=== PATIENT | female | born 2000 | race Two or more races ===

== ENCOUNTER 2024-09-11 09:41 | Emergency (ER) | payer MEDICAID, SELFPAY ==
[2024-09-11 09:42] VITALS: BMI 30.2
[2024-09-11 10:21] VITALS: BP 122/81; PULSE 100; RESP 18; TEMP 37.1; O2SAT 100
--- NOTE | 2024-09-11 10:30 | PD.EDRME ---
Rapid Medical Screening Exam RME Arrival date/time: 09/11/24 09:41 23-year-old female presents emergency department complaining of diffuse abdominal pain with vomiting that started yesterday. Chief Complaint: Abdominal Pain Time Seen by Provider: 09/11/24 10:23 Vital signs: Vital Signs Temperature 98.7 F 09/11/24 10:21 Pulse Rate 100 09/11/24 10:21 Respiratory Rate 18 09/11/24 10:21 Blood Pressure 122/81 09/11/24 10:21 Pulse Oximetry (%) 100 09/11/24 10:21 Oxygen Delivery Method Room Air 09/11/24 10:21 Vital signs reviewed by provider: Yes
[2024-09-11 11:16] LABS: Basophils % (Auto) 1 % (0-2.5); Eosinophils # (Auto) 0.1 Thou/mm3 (0.0-0.5); Eosinophils % (Auto) 2 % (0-10); Hemoglobin 13.6 g/dL (12.0-16.0); Immature Granulocytes % (Auto) 0 % (0-0); Immature Granulocytes Auto 0.01 Thou/mm3 (0.00-0.00); Lymphocytes # (Auto) 1.8 Thou/mm3 (1.0-4.8); Lymphocytes % (Auto) 33 % (10-50); Mean Corpuscular HGB Conc 33.2 g/dl (31.0-37.0); Mean Corpuscular Volume 81 fL (80-100); Monocytes # (Auto) 0.4 Thou/mm3 (0.0-0.8); Monocytes % (Auto) 8 % (0-12); Neutrophils % (Auto) 56 % (37-80); Nucleated Red Blood Cell % 0 /100 WBC (0); Platelet Count 271 Thou/mm3 (140-440); RDW Standard Deviation 38.8 fL (36.4-46.3); Red Blood Count 5.04 Miln/mm3 (4.00-5.20); White Blood Count 5.4 Thou/mm3 (3.6-11.0)
[2024-09-11 11:19] LABS: Collection Type, Urine Clean Catch; RBC,Urine 0 /hpf (0-3)
[2024-09-11] MEDS: ONDANSETRON ODT 4 MG TABRAP PO (11:19)
[2024-09-11 11:25] LABS: HCG,Qualitative Serum Negative
[2024-09-11 11:31] LABS: Amphetamine/Methamp Scrn,U Negative (Negative); Barbiturate Screen,Urine Negative (Negative); Benzodiazepines Screen,Urine Negative (Negative); Benzoylecgonine Screen, Ur Negative (Negative); Fentanyl Screen,Urine Negative (Negative); Opiate Screen,Urine Negative (Negative); THC Screen,Urine Negative (Negative)
[2024-09-11 11:38] LABS: Bacteria,Urine 3+; Bilirubin,Urine Negative (Negative); Blood,Urine Negative (Negative); Clarity,Urine Turbid (Clear/Hazy); Color,Urine Yellow (Lt Yel-Yel); Culture Indicated,Urine Contaminated; Glucose, Urine Negative (Negative); Ketones,Urine Negative (Negative); Leukocyte Esterase,Urine Positive (Negative); Nitrite,Urine Negative (Negative); Protein,Urine 1+ (Neg - Trace); Specific Gravity,Urine 1.034 (1.001-1.035); Squamous Epithelial Cell,Urine 88 /hpf (0-5); Urobilinogen,Urine Negative mg/dL (0.0-1.0); WBC,Urine 17 /hpf (0-5)
[2024-09-11 11:42] LABS: Alanine Aminotransferase 9 U/L (10-49); Albumin, Serum 4.8 gm/dL (3.5-5.0); Anion Gap 7 (7-16); Aspartate Amino Transferase 12 U/L (0-34); BUN/Creatinine Ratio 13 Ratio (12-20); Bilirubin,Total 0.5 mg/dL (0.3-1.2); Blood Urea Nitrogen 9 mg/dL (9-23); Calcium 9.1 mg/dL (8.3-10.6); Carbon Dioxide 24.7 mMol/L (20.0-31.0); Chloride 107 mMol/L (98-107); Creatinine (Component) 0.7 mg/dL (0.6-1.3); Estimated Creatinine Clearance 127.8 mL/min (>60); Glucose 97 mg/dL (74-106); Osmolality,Calculated 276 (275-295); Potassium 4.2 mMol/L (3.4-5.1); Sodium 139 mMol/L (136-145); Total Protein 7.6 gm/dL (5.7-8.2); eGFR > 60 See Note
[2024-09-11 11:43] LABS: Albumin/Globulin Ratio 1.7 (1.2-2.2); Alkaline Phosphatase 68 U/L (46-116); Calcium (Corrected) 9.1 mg/dL (8.5-10.1); Globulin 2.8 gm/dL (2.3-3.5); Lipase 48 U/L (12-53)
--- NOTE | 2024-09-11 11:47 | EDNOTE_ITS ---
ED Abdominal Pain RME/HPI General Chief Complaint: Abdominal Pain Stated complaint: LEFT ABD PAIN WITH VOMITING SINCE YESTERDAY Time seen by provider: 09/11/24 10:23 Arrival date/time: 09/11/24 09:41 23-year-old female presents emergency department complaining of diffuse abdominal pain with vomiting that started yesterday. Source: patient Mode of arrival: ambulatory Limitations: no limitations RME / HPI RME / HPI narrative: 09/11/24 09:41 23-year-old female presents emergency department complaining of diffuse abdominal pain with vomiting that started yesterday. Related Data Home Medications ?Medication ?Instructions ?Recorded ?Confirmed vit no.95-ferrous 1 tab PO QDAY 06/11/23 06/11/23 fumarate 28 mg-folic acid 800 mcg tablet () Previous Rx's ?Medication ?Instructions ?Recorded acetaminophen 300 mg-codeine 15 mg 1 tab PO Q12H PRN pain #14 tabs 06/25/23 tablet ibuprofen 800 mg tablet 800 mg PO Q8H PRN pain #30 tabs 06/25/23 ondansetron 4 mg disintegrating 4 mg PO Q8H PRN nausea and 09/11/24 tablet vomiting #10 tabs Allergies Allergy/AdvReac Type Severity Reaction Status Date / Time No Known Allergies Allergy Verified 09/11/24 09:43 Review of Systems Review of Systems Systems Reviewed: All systems reviewed, normal except as documented Constitutional Constitutional: Reports system reviewed and no additional complaints, except as documented, Denies body ache(s), Denies chills and Denies fever(s) Eyes Eyes: Reports system reviewed and no additional complaints, except as documented and Denies change in vision ENT Ears, Nose, Mouth, and Throat: Reports system reviewed and no additional complaints, except as documented, Denies disequilibrium, Denies dizziness, Denies sore throat and Denies vertigo Cardiovascular Cardiovascular: Reports system reviewed and no additional complaints, except as documented, Denies chest pain and Denies dyspnea Respiratory Respiratory: Reports system reviewed and no additional complaints, except as documented, Denies chest congestion, Denies cough and Denies dyspnea Gastrointestinal Gastrointestinal: Reports system reviewed and no additional complaints, except as documented, Reports abdominal pain, Reports nausea and Reports vomiting Musculoskeletal Musculoskeletal: Reports system reviewed and no additional complaints, except as documented, Denies abnormal gait and Denies arthralgias Integumentary/Breasts Skin/Breast: Reports system reviewed and no additional complaints, except as documented, Denies erythema, Denies rash and Denies wounds Neurologic Neurologic: Reports system reviewed and no additional complaints, except as documented, Denies abnormal gait, Denies disequilibrium, Denies dizziness and Denies vertigo Past Medical History Past Medical History NEUROLOGIC: Negative Neurological Disorders or Seizures CARDIAC: Negative Cardiac Disorders or Congestive Heart Failure RESPIRATORY: Negative Chronic Obstructive Pulmonary Disease (COPD) or Asthma GASTROINTESTINAL: Negative Gastrointestinal Disorders GENITOURINARY: Negative Genitourinary Disorders or Renal Disease REPRODUCTIVE: Negative Gonorrhea, Previous Pregnancies or Syphilis MUSCULOSKELETAL: Negative Musculoskeletal Disorders ENDOCRINE: Negative Endocrine Disorders, Diabetes Mellitus Type 1 or Diabetes Mellitus Type 2 HEMATOLOGIC: Negative Blood Disorders or Anemia PSYCHO/SOCIAL: Positive Recreational Drug Use (THC 09/2022); Negative Depression or Anxiety OTHER HISTORY: Negative Hospitalization, Autoimmune Disease, Down Syndrome, Developmental Delay, Shingles, Falls, Blood Transfusions, Blood Transfusion Reaction or Anesthesia Reactions Family History FAMILY HISTORY: Negative Family Psychiatric Problems, Family Respiratory Disorders, Family Cardiac Disorders, Family Gastrointestinal Problems, Family Cancer, Family Surgery or Family Anesthesia Reaction Social History SMOKING STATUS: Never smoker ED Exam General Limitations: Present no limitations Course Quality Measures none Orders Category Date Time Status CBC Stat Lab 09/11/24 10:44 Completed CMP [Comprehensive Metabolic Panel] Stat Lab 09/11/24 10:44 Completed Drug Screen,Urine Stat Lab 09/11/24 11:10 Completed HCG,Qualitative Serum Stat Lab 09/11/24 10:44 Completed Lipase Stat Lab 09/11/24 10:44 Completed Urinalysis, C/S if Indicated Stat Lab 09/11/24 11:10 Completed Ondansetron Odt [Zofran Odt] Med 09/11/24 10:35 Discontinued 4 mg PO X1 ONE Vital Signs Vital signs: Vital Signs Temperature 98.7 F 09/11/24 10:21 Pulse Rate 100 09/11/24 10:21 Respiratory Rate 18 09/11/24 10:21 Blood Pressure 122/81 09/11/24 10:21 Pulse Oximetry (%) 100 09/11/24 10:21 Oxygen Delivery Method Room Air 09/11/24 10:21 100% room air within normal limits Abdominal Pain MDM MDM Narrative MDM Narrative:: 23-year-old female presents emergency department complaining of diffuse abdominal pain with vomiting that started yesterday. Patient appears nontoxic and is hemodynamically stable. Abdomen is soft and nontender. CBC was unremarkable for any leukocytosis. CMP was unremarkable for any elevated LFTs or gross electrolyte abnormalities. Urinalysis was contaminated. Patient likely has viral gastroenteritis. Patient data External records reviewed:: [facility] previous records Clinical information provided by:: patient Social determinants that could affect healthcare access:: none Patient has the following chronic illnesses:: None How is presenting disease/condition affected by chronic disease/condition?: no chronic disease Evaluation data The following diagnostics were reviewed and interpreted by me:: lab results Lab and/or radiology exams considered but not ordered:: Ordered Interpretation Summary: Interpreted by me Medications / Prescriptions Medications or Prescriptions considered but not ordered:: Ordered Medication administrations:: Medication Administration History Discontinued Medications Ondansetron HCl (Ondansetron Odt 4 Mg Tabrap) 4 mg PO X1 ONE; Protocol Stop: 09/11/24 10:36 Last Admin: 09/11/24 11:19 Dose: 4 mg Documented By: [facility] Given Consultations Consultation(s) initiated? (list below): No Diagnosis Differential diagnosis abdominal pain: abdominal pain, acute appendicitis, calculus of kidney, constipation, diverticulitis, endometriosis, gastroenteritis, pancreatitis and small bowel obstruction Most likely diagnosis given after review of the tests above:: Gastroenteritis Admission Indicated Admission indicated?: not indicated Admission Request Was there a request for admission?: No Disposition Plan Disposition Plan: Discharge Discharge Attestation Discharge Attestation: The patient and all family members were given an opportunity to ask questions and understood the discharge instructions. Discharge instructions specifically effects, indications for sooner follow up or return to the emergency department, and the expected course of current diagnosis. Patient condition: Stable Discharge Plan Plan Patient Disposition: HOME (Self Care) Disposition Comment: Stable Prescriptions/Referrals Prescriptions/Med Rec: New ondansetron 4 mg tablet,disintegrating 4 mg PO Q8H PRN (Reason: nausea and vomiting) Qty: 10 0RF No Action ibuprofen 800 mg tablet 800 mg PO Q8H PRN (Reason: pain) Qty: 30 0RF acetaminophen-codeine 300-15 mg tablet 1 tab PO Q12H PRN (Reason: pain) Qty: 14 0RF PNV cmb#95-ferrous fumarate-FA [] 28 mg iron- 800 mcg Tablet 1 tab PO QDAY Referrals: No Primary/Family,Physician [Primary Care Provider] - In 1 week Problem List Clinical Impression: Gastroenteritis Patient/Caregiver Discharge Instructions Discharge Activity: activity as tolerated Education Materials: ED Gastroenteritis, Noninfectious Additional Instructions: Drink plenty of fluids and get plenty of rest. Follow-up with primary care provider in 2 to 3 days. Return to emergency department for any worsening symptoms or as needed. Print Language: Slovenian Stand Alone Forms: Michelle Award Info., Work/School Release, Patient Portal Info Letter PA/ABSTRACT MAKER Supervising Physician PA/DEION Supervising Physician: Dr. Cook
== END 2024-09-11 12:02 | disposition home or self-care (01) ==
PROVIDERS: Emergency Provider Emergency Medicine
DX: K52.9 Noninfective gastroenteritis and colitis, unspecified (principal)
CPT/HCPCS: 36415; 80053; 80307; 81001; 83690; 84703; 85025; 99283; Q0162

== ENCOUNTER 2024-12-26 09:20 | Outpatient (AMB) | payer MEDICAID, SELFPAY ==
--- NOTE | 2024-12-26 09:35 | OBCLNT_ITS ---
Vital Signs 12/26/24 09:36 Height 1.63 m Height Method Stated Weight 78.925 kg Weight Measurement Method Standing Scale BMI 29.8 BP 113/68 Blood Pressure Source Automatic Cuff Blood Pressure Location Left Upper Arm Position Sitting Respiration 16 Pulse 83 Pulse Source Monitor Temp 97.6 F Temp Source Oral Pulse Oximetry (%) 99 Oxygen Delivery Method Room Air Allergies/Home Meds Allergies & Medications Allergies No Known Allergies Allergy (Verified 12/26/24 09:37) Medication Reconciliation vit no.95-ferrous fumarate 28 mg-folic acid 800 mcg tablet () 1 tab PO QDAY 06/11/23 [History Confirmed 06/11/23] Intake Visit Data Collection New Patient or Established: Established Patient (seen at [facility] within 3 years) Reason for Visit:: FIRST PART VISIT Seen by Clinical Staff ONLY (RN/MA): No Dust Box Tender Required: No Do You Feel Safe at Home: Yes Authorities Contacted: N/A PCP or OBGYN visit in last 3 months: No Hx Now: Yes Are you currently on any form of Control: No Last menstrual period: 10/12/24 Pain Present Currently: No Pain Scale Used: Clark-Anaya/Numerical Pain scale:: 0 Smoking Status Smoking Status: Never smoker Questionnaires Covid-19 Vaccine Questionnaire Has patient been vacinated for Covid-19 Have you been vacinated for Covid-19: Yes PHQ-9 PHQ-2 Over the last 2 weeks, how often have you been bothered by any of the following problems? 1. Little interest or pleasure in doing things: not at all 2. Feeling down, depressed, or hopeless: not at all Total score: 0 PHQ-9 3. Trouble falling or staying asleep, or sleeping too much: Not at all 4. Feeling tired or having little energy: Not at all 5. Poor appetite or overeating: Not at all 6. Feeling bad about yourself - or that you are a failure or have let yourself or your family down: Not at all 7. Trouble concentrating on things, such as reading the newspaper or watching television: Not at all 8. Moving or speaking so slowly that other people could have noticed? - Or the opposite - being so fidgety or restless that you have been moving around a lot more than usual: not at all 9. Thoughts that you would be better off or of hurting yourself in some way: Not at all Total score: 0 Source: Developed by Drs. Jun Manjarrez, Jeanne Heller, Андрей Emanuel and colleagues, with an educational wale from [employer]. Depression screen completed yes Social History Living Situation History Marital Status: Single Lives With: Family Housing: House Tobacco History Smoking Status: Never smoker Second Hand Smoke Exposure: No Alcohol History Alcohol Intake: Never Substance Use History Substance Use: THC Domestic Abuse History Do You Feel Safe at Home: Yes Past Medical History Past Medical History Have you ever been diagnosed with any of the following: Neurological Problems Cerebrovascular Accident (CVA): No Transient Ischemic Attacks (TIA): No Dementia: No Alzheimer's Disease: No Parkinson's Disease: No Brain Tumor: No Meningitis: No Seizures: No Guillain-[place] Syndrome: No Sánchez's Palsy: No Cardiology Problems Myocardial Infarction: No Cardiac Arrhythmia: No Atrial Fibrillation: No Angina: No Heart Murmur: No Coronary Artery Disease: No Atherosclerotic Heart Disease: No Peripheral Vascular Disease: No Hypercholesterolemia: No Congestive Heart Failure: No Hypertension: No Respiratory Problems Chronic Obstructive Pulmonary Disease (COPD): No Asthma: No Pneumonia: No Tuberculosis: No Hx Cough: No Cough: No Wheezing: No Chest Deformities: No Smoking: No Smoking Cessation Counseling: No Smoking Exposure: No Tobacco Use: No Stomache/Intestinal Problems Liver Cancer: No Hepatitis: No Cirrhosis: No Pancreatic Cancer: No Pancreatitis: No Gall Bladder Disease: No Diverticulitis: No Irritable Bowel: No Crohn's Disease: No Obstructive Bowel: No Genital/Urinary Problems Chronic Kidney Disease: No Renal Disease: No Kidney Stones: No Reproductive Problems Breast Cancer: No Endometriosis: No Fibroids: No Genital Herpes: No Gonorrhea: No Previous Pregnancies: No Syphilis: No Musculoskeletal Problems Muscular Dystrophy: No Myasthenia Gravis: No Marfan's Syndrome: No Bone Cancer: No Head,Eye,Nose,Throat Problems Cataracts: No Glaucoma: No Blind: No Deafness: No Endocrine Problems Diabetes Mellitus Type 1: No Diabetes Mellitus Type 2: No Hypoglycemia: No [place]akes[place]'s Syndrome: No Brielle's Disease: No Graves' Disease: No Blood Problems Anemia: No Leukemia: No Hemophilia: No Thalassemia: No Sickle Cell Disease: No Clotting Problems: No Psychologic Problems Schizophrenia: No Recreational Drug Use: Yes (THC 09/2022) Depression: No Anxiety: No Other Problems Hospitalization: No Down Syndrome: No Developmental Delay: No Shingles: No Falls: No Blood Transfusions: No Blood Transfusion Reaction: No Anesthesia Reactions: No Clostridium Difficile: No Hepatitis A: No Hepatitis B: No Hepatitis C: No Cancer: No Cervical Cancer: No Ovarian Cancer: No Surgical History Angioplasty: No Bariatric Surgery: No Breast Surgery: No Cancer Surgery: No History of Present Illness HPI Narrative 23-year-old 2 para 1 for OBI today. Patient's last period was October 12, 2024. She had a positive test December 15, 2024. Report reports menses is every month x 5 days. And she reports unsure dates denies bleeding or cramping. She complains of some nausea and feeling very tired and breast tenderness. Denies social habits. She has a history of a x 1. No allergies. No complaints of vaginitis. She is happy about the . 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 Patient reports that her was for distress. OB Ultrasound Indication Indication: no FHT at 11 week OB Ultrasound Ultrasound technique: transabdominal Gestational sac assessment: Presence, location, size, shape: gestational sac seen, no pole OB Initial Visit OB Flowsheet OB Flowsheet Initial Weight: Not Recorded Date -?-?-?-?-?-?-?-?-?-?-?-?- EGA Weight Edema CTX Effacement BP Fundal ht Pres Dilation Effacement Station Visit Note Alb Glu FHR Mov 12/26/24 -?-?-?-?-?-?-?-?-?-?-?-?- 10w 5d 78.925 kg absent absent 113/68 10 23-year-old 2 para 1 for OB. Last. October 12, 2024. Denies bleeding or cramping. Reports sure dates. Menses are every month x 5 days. Patient is a previous section x 1 for distress. Reports slight nausea. Ultrasound showed gestational sac but no pole. heart tones were not heard. hCG x 2. And transvaginal OB ultrasound was ordered SAB precautions and discussed with patient. Menstrual History Menstrual reliability: definite Flow: normal Menstrual regularity: regular Monthly: Yes Age at menarche: 13 On control pills at conception: No Date of positive home test: 12/15/24 Associated symptoms (LMP): Reports nausea and fatigue OB History : 2 Para: 1 # of Living Children: 1 Delivery History 1st : Child's name: KLARISSA date: 06/23/23 sex: female Gestational age at delivery (weeks): 40 Delivery type: Delivery complications: NONE History of depression before or after : No Infection History & Risk Evaluation History of STDs: none Genetic Screening & History Genetic Screening/Teratology Counseling - Includes patient, baby's father, or anyone in either family with: 1. Patient's age 35 years or older as of estimated date of delivery: No 2. Thalassemia (Maldivian, Divehi, Mediterranean, or Background); MCV less than 80: No 3. Neural Tube Defect (Meningomyelocele, Spina Bifida, or Anencephaly): No 4. Congenital Heart Defect: No 5. Down Syndrome: No 6. Vinay-Sachs (Ashkenazi Taoist, Cajun, Uzbek Tunisian): No 7. Jose Disease (Ashkenazi Taoist): No 8. Familial Dysautonomia (Ashkenazi Taoist): No 9. Sickle Cell Disease or Trait (): No 10. Hemophilia or other blood disorders: No 11. Muscular Dystrophy: No 12. Cystic Fibrosis: No 13. Tj's Chorea: No 14. Mental Retardation/Autism: No 15. Other inherited genetic or chromosomal disorder: No 16. Maternal Metabolic Disorder (EG,TYPE 1 Diabetes, PKU): No 17. Patient or baby's father had a child with defects not listed above: No 18. Recurrent loss or a stillbirth: No 19. Medications (including supplements, vitamins, herbs or otc drugs)/illicit/recreational drugs/alcohol since last menstrual period: No 20. Any other: No Infection History 1. Live with someone with TB or exposed to TB: No 2. Rash or viral illness since last menstrual period: No 3. Hepatitis B,C: No Other (see comments) Source: [employer] Review of Systems Constitutional Constitutional: Reports fatigue Gastrointestinal Gastrointestinal: Reports nausea Endocrine Endocrine: Reports fatigue Exam General Limitations: no limitations General Appearance: alert, in no apparent distress, comfortable, cooperative, healthy appearing, well developed and well groomed Resp Respiratory exam: Present normal lung sounds bilaterally Card Cardiovascular exam: Present regular rate, normal rhythm and normal heart sounds Abdominal Abdominal exam: Present soft (gravid abdomen, 10 week size, no fht), normal kathrine wel sounds and scar (low transverse incision) External exam: Present normal external exam Speculum exam: Present normal speculum exam Psych Psychiatric exam: Present normal affect and normal mood Skin Skin exam: Present warm, dry, intact and normal color Assessment & Plan Diagnosis / Problem List (1) Encounter for supervision of normal first , third trimester: Status: Acute (2) Incomplete : Status: Acute Additional Plan Follow Up: 2 Weeks (f/u threatened SAB with OB) Office Procedures OB Clinic LOC & Office Proc's Nursing/Assessment Patient Status: Established Patient OB Clinic Nursing Assessment: Medication Reconciliation, Update PMH in EMR and Vital Signs OB Clinic Coordination of Care: Complex Care and Chronic Disease 1-5, Consent,records obtained, informed consent, Education Simp Pt/Fam, Lab and Imaging orders and Staff clarify orders Special Needs: Heart tones Miscellaneous Interventions: Pelvic/Pap Smear Set up Established Patient Charge Established Patient Point Assignment: 150 Established Patient Point Charge: EP Level 4 (120-155) In Clinic Procedures Pap Smear: Yes WEATHERSEAL TECHNICIAN: Papsmear Pap Smear Procedure Chaparone in room during procedure?: No Pre-op diagnosis general: z12.4, z34.81 Papsmear completed: yes (normal exam, no bleeding)
[2024-12-26 09:36] VITALS: BP 113/68; PULSE 83; RESP 16; TEMP 36.4; O2SAT 99; BMI 29.8
== END 2024-12-26 10:10 | disposition home or self-care (01) ==
LOC: HODSOBC 09:20
PROVIDERS: Supervising Provider Obstetrics & Gynecology; Visit Provider Advanced Practice Midwife
DX: O20.0 Threatened abortion (principal); Z3A.10 10 weeks gestation of pregnancy
CPT/HCPCS: 99214; Q0091; G0463

== ENCOUNTER → 2024-12-27 | Outpatient (CLI) | payer MEDICAID, SELFPAY ==
--- NOTE | 2024-12-27 | XR_ITS ---
Examination: OB Transvaginal ultrasound of the pelvis, complete Technique: Transvaginal sonographic images pelvis performed using berman scale imaging Exam date and time: December 27, 2024 1255 hours INDICATIONS: Diagnosis incomplete spontaneous FINDINGS: Uterus 9.8 cm, pole 0.7 cm correspondences 6 weeks 4 days gestational age Cardiac motion 112 bpm Right ovary 2.2 cm arterial flow Left ovary 2.8 cm arterial flow Mild fluid in the cul-de-sac IMPRESSION: Viable intrauterine gestation 6 weeks 4 days.
== END | disposition home or self-care (01) ==
PROVIDERS: PCP Family Medicine; Referring Provider Advanced Practice Midwife; Visit Provider Advanced Practice Midwife
DX: O03.4 Incomplete spontaneous abortion without complication (principal); Z3A.01 Less than 8 weeks gestation of pregnancy
CPT/HCPCS: 76817

== ENCOUNTER 2025-01-09 08:36 | Outpatient (AMB) | payer MEDICAID, SELFPAY ==
[2025-01-09 08:50] VITALS: BP 123/74; PULSE 91; RESP 18; TEMP 36.2; O2SAT 98; BMI 29.9
--- NOTE | 2025-01-09 08:50 | GYNCLNT_ITS ---
Vital Signs 01/09/25 08:50 01/09/25 11:20 Height 1.63 m Height Method Stated Weight 79.549 kg Weight Measurement Method Standing Scale BMI 29.9 BP 123/74 123/74 Blood Pressure Source Automatic Cuff Blood Pressure Location Left Upper Arm Position Sitting Respiration 18 18 Pulse 91 91 Pulse Source Monitor Temp 97.2 F 97.2 F Temp Source Oral Pulse Oximetry (%) 98 98 Oxygen Delivery Method Room Air Allergies/Home Meds Allergies & Medications Allergies No Known Allergies Allergy (Verified 01/09/25 08:52) Medication Reconciliation vit no.95-ferrous fumarate 28 mg-folic acid 800 mcg tablet () 1 tab PO QDAY 06/11/23 [History Confirmed 01/09/25] cephalexin 500 mg capsule 500 mg PO QID 7 days #28 caps 01/09/25 [Rx] Intake Visit Data Collection New Patient or Established: Established Patient (seen at [facility] within 3 years) Reason for Visit:: Review of initial labs, nausea when not eating Seen by Clinical Staff ONLY (RN/MA): No Quality Control Supervisor Required: No Do You Feel Safe at Home: Yes Authorities Contacted: N/A PCP or OBGYN visit in last 3 months: Yes Date of Last PCP or OBGYN visit: 12/26/24 Hx Now: Yes Are you currently on any form of Control: No Pain Present Currently: No Pain Scale Used: Clark-Anaya/Numerical Pain scale:: 0 Smoking Status Smoking Status: Never smoker 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 1. Little interest or pleasure in doing things: not at all 2. Feeling down, depressed, or hopeless: not at all Total score: 0 PHQ-9 3. Trouble falling or staying asleep, or sleeping too much: Not at all 4. Feeling tired or having little energy: Not at all 5. Poor appetite or overeating: Not at all 6. Feeling bad about yourself - or that you are a failure or have let yourself or your family down: Not at all 7. Trouble concentrating on things, such as reading the newspaper or watching television: Not at all 8. Moving or speaking so slowly that other people could have noticed? - Or the opposite - being so fidgety or restless that you have been moving around a lot more than usual: not at all 9. Thoughts that you would be better off or of hurting yourself in some way: Not at all Total score: 0 If you checked off any problems, how difficult have these problems made it for you to do your work, take care of things at home, or get along with other people?: not difficult at all Source: Developed by Drs. Jun Manjarrez, Jeanne Heller, Андрей Emanuel and colleagues, with an educational wale from [employer]. Depression screen completed yes Social History Living Situation History Marital Status: Single Lives With: Family Housing: House Tobacco History Smoking Status: Never smoker Second Hand Smoke Exposure: No Alcohol History Alcohol Intake: Never Substance Use History Substance Use: THC Domestic Abuse History Do You Feel Safe at Home: Yes Past Medical History Past Medical History Have you ever been diagnosed with any of the following: Neurological Problems Cerebrovascular Accident (CVA): No Transient Ischemic Attacks (TIA): No Dementia: No Alzheimer's Disease: No Parkinson's Disease: No Brain Tumor: No Meningitis: No Seizures: No Guillain-Greenwood Syndrome: No Sánchez's Palsy: No Cardiology Problems Myocardial Infarction: No Cardiac Arrhythmia: No Atrial Fibrillation: No Angina: No Heart Murmur: No Coronary Artery Disease: No Atherosclerotic Heart Disease: No Peripheral Vascular Disease: No Hypercholesterolemia: No Congestive Heart Failure: No Hypertension: No Respiratory Problems Chronic Obstructive Pulmonary Disease (COPD): No Asthma: No Pneumonia: No Tuberculosis: No Hx Cough: No Cough: No Wheezing: No Chest Deformities: No Smoking: No Smoking Cessation Counseling: No Smoking Exposure: No Tobacco Use: No Stomache/Intestinal Problems Liver Cancer: No Hepatitis: No Cirrhosis: No Pancreatic Cancer: No Pancreatitis: No Gall Bladder Disease: No Diverticulitis: No Irritable Bowel: No Crohn's Disease: No Obstructive Bowel: No Genital/Urinary Problems Renal Disease: No Kidney Stones: No Reproductive Problems Breast Cancer: No Endometriosis: No Fibroids: No Genital Herpes: No Gonorrhea: No Previous Pregnancies: No Syphilis: No Musculoskeletal Problems Muscular Dystrophy: No Myasthenia Gravis: No Marfan's Syndrome: No Bone Cancer: No Head,Eye,Nose,Throat Problems Cataracts: No Glaucoma: No Blind: No Deafness: No Endocrine Problems Diabetes Mellitus Type 1: No Diabetes Mellitus Type 2: No Hypoglycemia: No Pierpont's Syndrome: No Jose Ramon's Disease: No Graves' Disease: No Blood Problems Anemia: No Leukemia: No Hemophilia: No Thalassemia: No Sickle Cell Disease: No Clotting Problems: No Psychologic Problems Schizophrenia: No Recreational Drug Use: Yes ([facility] 09/2022) Depression: No Anxiety: No Other Problems Hospitalization: No Down Syndrome: No Developmental Delay: No Shingles: No Falls: No Blood Transfusions: No Blood Transfusion Reaction: No Anesthesia Reactions: No Clostridium Difficile: No Hepatitis A: No Hepatitis B: No Hepatitis C: No Cancer: No Cervical Cancer: No Ovarian Cancer: No Surgical History Angioplasty: No Bariatric Surgery: No Breast Surgery: No Cancer Surgery: No History of Present Illness HPI Narrative Francisca Cruz presents for a review of initial labs and follow-up. She reports experiencing nausea throughout the day, particularly when not eating. The patient states she feels the need to eat almost constantly to manage her nausea symptoms. Despite the persistent nausea, she has not experienced any vomiting episodes. Francisca mentions having had an ultrasound on her first visit when she was diagnosed with cancer, though no further details about this diagnosis are provided in the transcript. Obstetric History - GTPAL: G2 T1 L1 - Current : - Gestational age: Approximately 10 weeks (based on upcoming 12-week ultrasound in 2 weeks) - history: - Previous section delivery (details not provided) Medical History - Urinary tract infection (UTI) diagnosed during current visit Surgical History - section (), prior to current Medications and Supplements - Antibiotics - Prescribed for UTI Social History - Diet: Patient reports needing to eat frequently to manage nausea. Advised to focus on high-protein, homemade foods and avoid junk food and fried foods. Review of Systems General: Negative for fever, chills, fatigue, muscle aches. Positive for increased appetite. Gastrointestinal: Positive for nausea when not eating. Negative for vomiting. Review of Systems Review of Systems Systems Reviewed: All systems reviewed, normal except as documented Exam General Limitations: no limitations General Appearance: alert, in no apparent distress, comfortable, cooperative, healthy appearing, well developed and well groomed Head Head exam: atraumatic, normocephalic and normal inspection Chest Chest inspection: Present normal inspection and symmetric chest wall rise Abdominal Abdominal exam: Present soft and normal bowel sounds Psych Psychiatric exam: Present normal affect and normal mood Skin Skin exam: Present warm, dry, intact and normal color Results Objective Laboratory: - Date: 12/27/2024 - Hemoglobin: 11.6 g/dL - Hematocrit: 35.1% - Blood group: O-positive - Serum beta-HC,755 mIU/mL - Antibody screen: Negative - Urine dipstick: Positive for nitrites Imaging: Uterus 9.8 cm, pole 0.7 cm correspondences 6 weeks 4 days gestational age Cardiac motion 112 bpm Right ovary 2.2 cm arterial flow Left ovary 2.8 cm arterial flow Mild fluid in the cul-de-sac Assessment & Plan Diagnosis / Problem List (1) Maternal care for low transverse scar from previous delivery: Status: Acute (2) Supervision of high risk , unspecified, first trimester: Status: Acute Plan Francisca Cruz, female, presenting for review of initial labs and management of -related symptoms. Intrauterine Assessment: Patient is in early with serum beta-HCG of 30,755 on 12/27/2024. Initial labs show hemoglobin of 11.6 and hematocrit of 35.1. Blood group is O-positive with negative antibody screen. Patient reports nausea without vomiting, managed by frequent eating. Previous section noted. Ultrasound performed on initial visit confirmed intrauterine . Plan: - Schedule 12-week ultrasound at [facility] as part of genetic screening program - Schedule 20-week ultrasound to assess section scar - Extension Service Supervisor on nutrition: encourage high-protein, homemade foods; avoid junk and fried foods - Planned section delivery at [facility] - Follow-up in 2 weeks for office ultrasound Urinary Tract Infection Assessment: Positive nitrites on urine dipstick, indicative of urinary tract infection. Specific pathogen unknown at this time. Plan: - Prescribe empiric antibiotic therapy for UTI - Repeat urine dipstick after completion of antibiotics to confirm resolution - If infection persists, order urine culture for pathogen identification Office Procedures OB Clinic LOC & Office Proc's Nursing/Assessment Patient Status: Established Patient OB Clinic Nursing Assessment: BP Monitoring, Medication Reconciliation, Update PMH in EMR and Vital Signs OB Clinic Coordination of Care: Consent,records obtained, informed consent, Lab and Imaging orders, Results/Orders obtained and Staff clarify orders Established Patient Charge Established Patient Point Assignment: 80 Established Patient Point Charge: EP Level 3 (80-115)
[2025-01-09 11:20] VITALS: BP 123/74; PULSE 91; RESP 18; TEMP 36.2; O2SAT 98
--- NOTE | 2025-01-09 11:20 | OBCLNT_ITS ---
Vital Signs 01/09/25 08:50 Height 1.63 m Height Method Stated Weight 79.549 kg Weight Measurement Method Standing Scale BMI 29.9 BP 123/74 Blood Pressure Source Automatic Cuff Blood Pressure Location Left Upper Arm Position Sitting Respiration 18 Pulse 91 Pulse Source Monitor Temp 97.2 F Temp Source Oral Pulse Oximetry (%) 98 Oxygen Delivery Method Room Air Allergies/Home Meds Allergies & Medications Allergies No Known Allergies Allergy (Verified 01/09/25 08:52) Medication Reconciliation vit no.95-ferrous fumarate 28 mg-folic acid 800 mcg tablet () 1 tab PO QDAY 06/11/23 [History Confirmed 01/09/25] cephalexin 500 mg capsule 500 mg PO QID 7 days #28 caps 01/09/25 [Rx] Intake Visit Data Collection New Patient or Established: Established Patient (seen at [facility] within 3 years) Reason for Visit:: obc Do You Feel Safe at Home: Yes Authorities Contacted: N/A PCP or OBGYN visit in last 3 months: Yes Smoking Status Smoking Status: Never smoker Questionnaires Covid-19 Vaccine Questionnaire Has patient been vacinated for Covid-19 Have you been vacinated for Covid-19: Yes PHQ-9 PHQ-2 Over the last 2 weeks, how often have you been bothered by any of the following problems? 1. Little interest or pleasure in doing things: not at all PHQ-9 3. Trouble falling or staying asleep, or sleeping too much: Not at all 4. Feeling tired or having little energy: Not at all 5. Poor appetite or overeating: Not at all 6. Feeling bad about yourself - or that you are a failure or have let yourself or your family down: Not at all 7. Trouble concentrating on things, such as reading the newspaper or watching television: Not at all 8. Moving or speaking so slowly that other people could have noticed? - Or the opposite - being so fidgety or restless that you have been moving around a lot more than usual: not at all Total score: 0 If you checked off any problems, how difficult have these problems made it for you to do your work, take care of things at home, or get along with other people?: not difficult at all Source: Developed by Drs. Jun Manjarrez, Jeanne B.W. Андрей Heller and colleagues, with an educational wale from [employer]. Social History Living Situation History Marital Status: Single Lives With: Family Housing: House Tobacco History Smoking Status: Never smoker Second Hand Smoke Exposure: No Alcohol History Alcohol Intake: Never Substance Use History Substance Use: THC Domestic Abuse History Do You Feel Safe at Home: Yes Past Medical History Past Medical History Have you ever been diagnosed with any of the following: Neurological Problems Cerebrovascular Accident (CVA): No Transient Ischemic Attacks (TIA): No Dementia: No Alzheimer's Disease: No Parkinson's Disease: No Brain Tumor: No Meningitis: No Seizures: No Guillain-Lynx Syndrome: No Sánchez's Palsy: No Cardiology Problems Myocardial Infarction: No Cardiac Arrhythmia: No Atrial Fibrillation: No Angina: No Heart Murmur: No Coronary Artery Disease: No Atherosclerotic Heart Disease: No Peripheral Vascular Disease: No Hypercholesterolemia: No Congestive Heart Failure: No Hypertension: No Respiratory Problems Chronic Obstructive Pulmonary Disease (COPD): No Asthma: No Pneumonia: No Tuberculosis: No Hx Cough: No Cough: No Wheezing: No Chest Deformities: No Smoking: No Smoking Cessation Counseling: No Smoking Exposure: No Tobacco Use: No Stomache/Intestinal Problems Liver Cancer: No Hepatitis: No Cirrhosis: No Pancreatic Cancer: No Pancreatitis: No Gall Bladder Disease: No Diverticulitis: No Irritable Bowel: No Crohn's Disease: No Obstructive Bowel: No Genital/Urinary Problems Renal Disease: No Kidney Stones: No Reproductive Problems Breast Cancer: No Endometriosis: No Fibroids: No Genital Herpes: No Gonorrhea: No Previous Pregnancies: No Syphilis: No Musculoskeletal Problems Muscular Dystrophy: No Myasthenia Gravis: No Marfan's Syndrome: No Bone Cancer: No Head,Eye,Nose,Throat Problems Cataracts: No Glaucoma: No Blind: No Deafness: No Endocrine Problems Diabetes Mellitus Type 1: No Diabetes Mellitus Type 2: No Hypoglycemia: No Aniyah's Syndrome: No Jose Ramon's Disease: No Graves' Disease: No Blood Problems Anemia: No Leukemia: No Hemophilia: No Thalassemia: No Sickle Cell Disease: No Clotting Problems: No Psychologic Problems Schizophrenia: No Recreational Drug Use: Yes ([facility] 09/2022) Depression: No Anxiety: No Other Problems Hospitalization: No Down Syndrome: No Developmental Delay: No Shingles: No Falls: No Blood Transfusions: No Blood Transfusion Reaction: No Anesthesia Reactions: No Clostridium Difficile: No Hepatitis A: No Hepatitis B: No Hepatitis C: No Cancer: No Cervical Cancer: No Ovarian Cancer: No Surgical History Angioplasty: No Bariatric Surgery: No Breast Surgery: No Cancer Surgery: No Visit OB Visit Log OB Flowsheet Initial Weight: Not Recorded Date -?-?-?-?-?-?-?-?-?-?-?-?- EGA Weight Edema CTX Effacement BP Fundal ht Pres Dilation Effacement Station Visit Note Alb Glu FHR Mov 12/26/24 -?-?-?-?-?-?-?-?-?-?-?-?- 10w 5d 78.925 kg absent absent 113/68 10 23-year-old 2 para 1 for OB. Last. October 12, 2024. Denies bleeding or cramping. Reports sure dates. Menses are every month x 5 days. Patient is a previous section x 1 for distress. Reports slight nausea. Ultrasound showed gestational sac but no pole. heart tones were not heard. hCG x 2. And transvaginal OB ultrasound was ordered SAB precautions and discussed with patient. 01/09/25 -?-?-?-?-?-?-?-?-?-?-?-?- 12w 5d 79.549 kg 123/74 Reva Cruz, , at approximately 10 weeks gestation, presents for review of initial labs and management of -related symptoms. No CTX/LOF/VB. No DOE/VS, Epig/RUQ pain. Reports nausea when not eating; no vomit ing. Increased appetite noted. Prior section history. Labs: Hemoglobin 11.6 g/dL Hematocrit 35.1% Blood group O-positive Serum beta-HCG 30,755 mIU/mL Antibody screen negative Urine dipstick positive for nitrites Ultrasound: Confirmed intrauterine pregn nathan Assessment & Plan: Francisca Cruz is a at approximatel y 10w0d gestation presenting for follow-up with early symptoms and positive UTI screening. Intrauterine Schedule 12-week ultrasound at [facility] (genetic screening) Schedule 20-week ultrasound to assess C- section scar Polisher Numeral on diet: encourage high-protein, homemade foods; avoid junk/fried foods Plan delivery at [facility] Follow-up in 2 weeks for office ultrasou nd Urinary tract infection Prescribe empiric antibiotics for UTI Repeat urine dipstick after completing a ntibiotics If persistent, send urine culture JUDY Calculator Estimated Delivery Date Method Current WG Current Estimate 07/19/25 LMP (Certain) 12w 5d Office Procedures OB Clinic LOC & Office Proc's Nursing/Assessment Patient Status: Established Patient OB Clinic Nursing Assessment: BP Monitoring, Medication Reconciliation, Update PMH in EMR and Vital Signs OB Clinic Coordination of Care: Consent,records obtained, informed consent, Lab and Imaging orders, Results/Orders obtained and Staff clarify orders Established Patient Charge Established Patient Point Assignment: 80 Established Patient Point Charge: EP Level 3 (80-115)
== END 2025-01-09 09:04 | disposition home or self-care (01) ==
LOC: HODSOBC 08:36
PROVIDERS: PCP Obstetrics & Gynecology; Referring Provider Obstetrics & Gynecology; Supervising Provider Obstetrics & Gynecology; Visit Provider Obstetrics & Gynecology
DX: O09.291 Supervision of pregnancy with other poor reproductive or obstetric history, first trimester (principal); O09.891 Supervision of other high risk pregnancies, first trimester; O34.211 Maternal care for low transverse scar from previous cesarean delivery; O23.41 Unspecified infection of urinary tract in pregnancy, first trimester; N39.0 Urinary tract infection, site not specified; Z3A.10 10 weeks gestation of pregnancy
CPT/HCPCS: 99213; G0463

== ENCOUNTER 2025-01-23 13:02 | Outpatient (AMB) | payer MEDICAID, SELFPAY ==
[2025-01-23 13:11] VITALS: BP 117/75; PULSE 77; RESP 16; TEMP 36.5; O2SAT 98; BMI 29.6
--- NOTE | 2025-01-23 13:11 | AMB.OBVISIT ---
Vital Signs 01/23/25 13:11 Height 1.63 m Height Method Stated Weight 78.642 kg Weight Measurement Method Standing Scale BMI 29.6 BP 117/75 Blood Pressure Source Automatic Cuff Blood Pressure Location Left Upper Arm Position Sitting Respiration 16 Pulse 77 Pulse Source Monitor Temp 97.7 F Temp Source Oral Pulse Oximetry (%) 98 Oxygen Delivery Method Room Air Allergies/Home Meds Allergies & Medications Allergies No Known Allergies Allergy (Verified 01/23/25 13:12) Medication Reconciliation vit no.95-ferrous fumarate 28 mg-folic acid 800 mcg tablet () 1 tab PO QDAY 06/11/23 [History Confirmed 01/23/25] vits no.126-ferrous fum 28 mg iron-folic acid 800 mcg tablet (Classic ) 0.126 - 28 tab PO DAILY 30 days #60 tabs 01/23/25 [Rx] vits no.126-ferrous fum 28 mg iron-folic acid 800 mcg tablet (Classic ) 0.126 - 28 tab PO DAILY 30 days #60 tabs 01/23/25 [Rx] Intake Visit Data Collection New Patient or Established: Established Patient (seen at [facility] within 3 years) Reason for Visit:: CARE Seen by Clinical Staff ONLY (RN/MA): No Gear Shaper Required: No Do You Feel Safe at Home: Yes Authorities Contacted: N/A PCP or OBGYN visit in last 3 months: Yes Hx Now: Yes Are you currently on any form of Control: No Pain Present Currently: No Pain Scale Used: Clark-Anaya/Numerical Pain scale:: 0 Smoking Status Smoking Status: Never smoker Questionnaires Covid-19 Vaccine Questionnaire Has patient been vacinated for Covid-19 Have you been vacinated for Covid-19: Yes PHQ-9 PHQ-2 Over the last 2 weeks, how often have you been bothered by any of the following problems? 1. Little interest or pleasure in doing things: not at all 2. Feeling down, depressed, or hopeless: not at all Total score: 0 PHQ-9 3. Trouble falling or staying asleep, or sleeping too much: Not at all 4. Feeling tired or having little energy: Not at all 5. Poor appetite or overeating: Not at all 6. Feeling bad about yourself - or that you are a failure or have let yourself or your family down: Not at all 7. Trouble concentrating on things, such as reading the newspaper or watching television: Not at all 8. Moving or speaking so slowly that other people could have noticed? - Or the opposite - being so fidgety or restless that you have been moving around a lot more than usual: not at all 9. Thoughts that you would be better off or of hurting yourself in some way: Not at all Total score: 0 Source: Developed by Drs. Jun Manjarrez, Jeanne Heller, Андрей Emanuel and colleagues, with an educational wale from [employer]. 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: Yes Care OB Visit Log OB Flowsheet Initial Weight: Not Recorded Date <del>?</del> EGA Weight Edema CTX Effacement BP Fundal ht Pres Dilation Effacement Station Visit Note Alb Glu FHR Mov 12/26/24 <del>?</del> 6w 3d 78.925 kg absent absent 113/68 10 23-year-old 2 para 1 for OB. Last. October 12, 2024. Denies bleeding or cramping. Reports sure dates. Menses are every month x 5 days. Patient is a previous section x 1 for distress. Reports slight nausea. Ultrasound showed gestational sac but no pole. heart tones were not heard. hCG x 2. And transvaginal OB ultrasound was ordered SAB precautions and discussed with patient. 01/09/25 <del>?</del> 8w 3d 79.549 kg 123/74 123/74 Francisca Cruz, , at approximately 10 weeks gestation, presents for review of initial labs and management of -related symptoms. No CTX/LOF/VB. No DOE/VS, Epig/RUQ pain. Reports nausea when not eating; no vomiting. Increased appetite noted. Prior section history. Labs: Hemoglobin 11.6 g/dL Hematocrit 35.1% Blood group O-positive Serum beta-HCG 30,755 mIU/mL Antibody screen negative Urine dipstick positive for nitrites Ultrasound: Confirmed intrauterine Assessment & Plan: Francisca Cruz is a at approximately 10w0d gestation presenting for follow-up with early symptoms and positive UTI screening. Intrauterine Schedule 12-week ultrasound at [facility] (genetic screening) Schedule 20-week ultrasound to assess scar Cardiac Rehabilitation Program Director on diet: encourage high-protein, homemade foods; avoid junk/fried foods Plan delivery at [facility] Follow-up in 2 weeks for office ultrasound Urinary tract infection Prescribe empiric antibiotics for UTI Repeat urine dipstick after completing antibiotics If persistent, send urine culture 01/23/25 <del>?</del> 10w 3d 78.642 kg absent absent 117/75 wrong dates. sono 12/27: 6w4. Change due date to 08/18/25. NIPT and carrier screen today, refill PNV, sab precaution. increase fluid. RTC 4 week OBC, mfm referal was made JUDY Calculator Estimated Delivery Date Method Current WG Current Estimate 08/18/25 Ultrasound #1 10w 3d Other Estimates 07/19/25 LMP (Certain) 14w 5d Comments: 24 yo . c/sx1, Poor dates. 12/27 sono: 6w4, EDC: 08/18/25 Assessment & Plan Diagnosis / Problem List (1) Supervision of high risk , unspecified, first trimester: Status: Acute Plan SAB precautions reviewed. Increase fluids. Refill vitamins. Discussed dating with patient. I gave patient a lab slip to do NIPT and carrier screens. An MFM referral is pending. Return in 4 weeks OB check Additional Plan Follow Up: 4 Weeks (OBC) Office Procedures OB Clinic LOC & Office Proc's Nursing/Assessment Patient Status: Established Patient OB Clinic Nursing Assessment: Medication Reconciliation, Update PMH in EMR and Vital Signs OB Clinic Coordination of Care: Complex Care and Chronic Disease 1-5, Consent,records obtained, informed consent, Education Simp Pt/Fam, Lab and Imaging orders, Results/Orders obtained and Staff clarify orders Special Needs: Heart tones Miscellaneous Interventions: Blood/Urine Collection Established Patient Charge Established Patient Point Assignment: 165 Established Patient Point Charge: EP Level 5 (160-above) 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
== END 2025-01-23 13:37 | disposition home or self-care (01) ==
LOC: HODSOBC 13:02
PROVIDERS: PCP Obstetrics & Gynecology; Referring Provider Obstetrics & Gynecology; Supervising Provider Obstetrics & Gynecology; Visit Provider Obstetrics & Gynecology
DX: O09.291 Supervision of pregnancy with other poor reproductive or obstetric history, first trimester (principal); Z3A.10 10 weeks gestation of pregnancy; O34.219 Maternal care for unspecified type scar from previous cesarean delivery
CPT/HCPCS: 99215; G0463

== ENCOUNTER 2025-02-20 15:33 | Outpatient (AMB) | payer MEDICAID, SELFPAY ==
[2025-02-20 15:44] VITALS: BP 122/76; PULSE 98; RESP 16; TEMP 36.2; O2SAT 98; BMI 30.6
--- NOTE | 2025-02-20 15:44 | OBCLNT_ITS ---
Vital Signs 02/20/25 15:44 Height 1.63 m Height Method Stated Weight 81.42 kg Weight Measurement Method Standing Scale BMI 30.6 BP 122/76 Blood Pressure Source Automatic Cuff Blood Pressure Location Left Upper Arm Position Sitting Respiration 16 Pulse 98 Pulse Source Monitor Temp 97.2 F Temp Source Oral Pulse Oximetry (%) 98 Oxygen Delivery Method Room Air Allergies/Home Meds Allergies & Medications Allergies No Known Allergies Allergy (Verified 02/20/25 15:46) Medication Reconciliation vit no.95-ferrous fumarate 28 mg-folic acid 800 mcg tablet () 1 tab PO QDAY 06/11/23 [History Confirmed 02/20/25] vits no.126-ferrous fum 28 mg iron-folic acid 800 mcg tablet (Classic ) 0.126 - 28 tab PO DAILY 30 days #60 tabs 01/23/25 [Rx Confirmed 02/20/25] vits no.126-ferrous fum 28 mg iron-folic acid 800 mcg tablet (Classic ) 0.126 - 28 tab PO DAILY 30 days #60 tabs 01/23/25 [Rx Confirmed 02/20/25] Intake Visit Data Collection New Patient or Established: Established Patient (seen at [facility] within 3 years) Reason for Visit:: OBC Seen by Clinical Staff ONLY (RN/MA): No Bearingizer Required: No Do You Feel Safe at Home: Yes Authorities Contacted: N/A PCP or OBGYN visit in last 3 months: Yes Date of Last PCP or OBGYN visit: 01/23/25 Hx Now: Yes Are you currently on any form of Control: No Pain Present Currently: No Pain Scale Used: Clark-Anaya/Numerical Pain scale:: 0 Smoking Status Smoking Status: Never smoker Questionnaires Covid-19 Vaccine Questionnaire Has patient been vacinated for Covid-19 Have you been vacinated for Covid-19: Yes PHQ-9 PHQ-2 Over the last 2 weeks, how often have you been bothered by any of the following problems? 1. Little interest or pleasure in doing things: not at all 2. Feeling down, depressed, or hopeless: not at all Total score: 0 PHQ-9 3. Trouble falling or staying asleep, or sleeping too much: Not at all 4. Feeling tired or having little energy: Not at all 5. Poor appetite or overeating: Not at all 6. Feeling bad about yourself - or that you are a failure or have let yourself or your family down: Not at all 7. Trouble concentrating on things, such as reading the newspaper or watching television: Not at all 8. Moving or speaking so slowly that other people could have noticed? - Or the opposite - being so fidgety or restless that you have been moving around a lot more than usual: not at all 9. Thoughts that you would be better off or of hurting yourself in some way: Not at all Total score: 0 If you checked off any problems, how difficult have these problems made it for you to do your work, take care of things at home, or get along with other pe ople?: not difficult at all Source: Developed by Drs. Jun Manjarrez, Jeanne Heller, Андрей Emanuel and colleagues, with an educational wale from [employer]. 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 Last. October 12, 2024. Denies bleeding or cramping. Reports sure dates. Menses are every month x 5 days. Patient is a previous section x 1 for distress. Reports slight nausea. Ultrasound showed gestational sac but no pole. heart tones were not heard. hCG x 2. And transvaginal OB ultrasound was ordered SAB precautions and discussed with patient. 01/09/25 -?-?-?-?-?-?-?-?-?-?-?-?- 8w 3d 79.549 kg 123/74 123/74 Francisca Cruz, G2P 1, at approximately 10 weeks gestation, presents for review of initial labs and management of - related symptoms. No CTX/LOF/VB. No DOE/VS, Epig/RUQ pain. Reports nausea when not eating; no vomit ing. Increased appetite noted. Prior section history. Labs: Hemoglobin 11.6 g/dL Hematocrit 35.1% Blood group O-positive Serum beta-HCG 30,755 mIU/mL Antibody screen negative Urine dipstick positive for nitrites Ultrasound: Confirmed intrauterine pregn nathan Assessment & Plan: Francisca Cruz is a at approximatel y 10w0d gestation presenting for follow-up with early symptoms and positive UTI screening. 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 sono 12/27: 6w4. Change due date to 08/18/25. NIPT and carrier screen today, refill PNV, sab precaution. increase fluid. RTC 4 week OBC, mfm referal was made 02/20/25 -?-?-?-?-?-?-?-?-?-?-?-?- 14w 3d 81.42 kg 122/76 absent unknown 15 135 active no sab complaints, light FM. compliant with PNV dis cuss wrong dates. CEDD: 08/18/25. discuss NIPT and carrier scree,AFP NV, patient will call [facility] for appointment. sab precaution discuss wrong dates. CEDD: 1 10/19/24. discuss NIPT and carrier scree,AFP NV, patient will call [facility] for appointment. sab precaution. draw OB panel nv JUDY Calculator Estimated Delivery Date Method Current WG Current Estimate 08/18/25 Ultrasound #1 14w 3d Other Estimates 07/19/25 LMP (Certain) 18w 5d Notes Visit Date: 02/20/25 Last Updated by: Torri Monson CNM 24 yo . prev c/s x1. wrong dates. 12/27/24 sono: 6w4. EDC: 08/18/25. pap wnl, NIPT and SMA- Office Procedures OB Clinic LOC & Office Proc's Nursing/Assessment Patient Status: Established Patient OB Clinic Nursing Assessment: Medication Reconciliation, Update PMH in EMR and Vital Signs OB Clinic Coordination of Care: Education Complex Pt/Fam, Consent,records obtained, informed consent, Results/Orders obtained and Staff clarify orders Special Needs: Heart tones Established Patient Charge Established Patient Point Assignment: 100 Established Patient Point Charge: EP Level 3 (80-115) Assessment & Plan Diagnosis / Problem List (1) Supervision of high risk , unspecified, first trimester: Status: Acute (2) Maternal care for low transverse scar from previous delivery: Status: Acute Plan continue PNV, discuss sab precaution, AFP NV, patient will call [facility] for sono appointment. RTC 4 week OBC. draw OB panel NV Additional Plan Follow Up: 4 Weeks (obc)
== END 2025-02-20 16:07 | disposition home or self-care (01) ==
LOC: HODSOBC 15:33
PROVIDERS: Supervising Provider Advanced Practice Midwife; Visit Provider Advanced Practice Midwife
DX: O09.292 Supervision of pregnancy with other poor reproductive or obstetric history, second trimester (principal); Z3A.14 14 weeks gestation of pregnancy; O34.211 Maternal care for low transverse scar from previous cesarean delivery
CPT/HCPCS: 99213; G0463

== ENCOUNTER 2025-03-22 09:32 | Outpatient (AMB) | payer MEDICAID, SELFPAY ==
[2025-03-22 09:38] VITALS: BP 120/72; PULSE 84; RESP 17; TEMP 36.4; O2SAT 98; BMI 31.5
--- NOTE | 2025-03-22 09:38 | OBCLNT_ITS ---
Vital Signs 03/22/25 09:38 Height 1.63 m Height Method Measured Weight 83.688 kg Weight Measurement Method Standing Scale BMI 31.5 BP 120/72 Blood Pressure Source Automatic Cuff Blood Pressure Location Right Upper Arm Position Sitting Respiration 17 Pulse 84 Pulse Source Monitor Temp 97.6 F Temp Source Temporal Artery Scan Pulse Oximetry (%) 98 Oxygen Delivery Method Room Air Allergies/Home Meds Allergies & Medications Allergies No Known Allergies Allergy (Verified 03/22/25 09:39) Medication Reconciliation vit no.95-ferrous fumarate 28 mg-folic acid 800 mcg tablet () 1 tab PO QDAY 06/11/23 [History Confirmed 03/22/25] vits no.126-ferrous fum 28 mg iron-folic acid 800 mcg tablet (Classic ) 0.126 - 28 tab PO DAILY 30 days #60 tabs 01/23/25 [Rx Confirmed 03/22/25] vits no.126-ferrous fum 28 mg iron-folic acid 800 mcg tablet (Classic ) 0.126 - 28 tab PO DAILY 30 days #60 tabs 01/23/25 [Rx Confirmed 03/22/25] Intake Visit Data Collection New Patient or Established: Established Patient (seen at [facility] within 3 years) Reason for Visit:: OBC Consent obtained for Telemed Visit: No Seen by Clinical Staff ONLY (RN/MA): No 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 1. Little interest or pleasure in doing things: not at all PHQ-9 8. Moving or speaking so slowly that other people could have noticed? - Or the opposite - being so fidgety or restless that you have been moving around a lot more than usual: not at all Source: Developed by Jeanne Holliday B.W. Arron, Андрей Emanuel and colleagues, with an educational wale from [employer]. 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 Last. October 12, 2024. Denies bleeding or cramping. Reports sure dates. Menses are every month x 5 days. Patient is a previous section x 1 for distress. Reports slight nausea. Ultrasound showed gestational sac but no pole. heart tones were not heard. hCG x 2. And transvaginal OB ultrasound was ordered SAB precautions and discussed with patient. 01/09/25 -?-?-?-?-?-?-?-?-?-?--?-?- 8w 3d 79.549 kg 123/74 123/74 Francisca Cruz, G2P 1, at approximately 10 weeks gestation, presents for review of initial labs and management of - related symptoms. No CTX/LOF/VB. No DOE/VS, Epig/RUQ pain. Reports nausea when not eating; no vomit ing. Increased appetite noted. Prior section history. Labs: Hemoglobin 11.6 g/dL Hematocrit 35.1% Blood group O-positive Serum beta-HCG 30,755 mIU/mL Antibody screen negative Urine dipstick positive for nitrites Ultrasound: Confirmed intrauterine pregn nathan Assessment & Plan: Francisca Cruz is a at approximatel y 10w0d gestation presenting for follow-up with early symptoms and positive UTI screening. 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 sono 12/27: 6w4. Change due date to 08/18/25. NIPT and carrier screen today, refill PNV, sab precaution. increase fluid. RTC 4 week OBC, m referal was made 02/20/25 -?-?-?-?-?-?-?-?-?-?-?-?- 14w 3d 81.42 kg 122/76 absent unknown 15 135 active no sab complaints, light FM. compliant with PNV dis cuss wrong dates. CEDD: 08/18/25. discuss NIPT and carrier scree,AFP NV, patient will call [facility] for appointment. sab precaution discuss wrong dates. CEDD: 1 10/19/24. discuss NIPT and carrier scree,AFP NV, patient will call [facility] for appointment. sab precaution. draw OB panel nv 03/22/25 -?-?-?-?-?-?-?-?-?-?-?-?- 18w 5d 83.688 kg 120/72 occasional unknown 18 145 active For repeat c/s. fainted at work. occ cramps. improved at rest. 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 AFP, MFM 04/10, discuss sab precaution, increase fluid,rest and increased protein. rtc 4 week obc JUDY Calculator Estimated Delivery Date Method Current WG Current Estimate 08/18/25 Ultrasound #1 18w 5d Other Estimates 07/19/25 LMP (Certain) 23w 0d Notes Visit Date: 03/22/25 Last Updated by: Torri Monson CNM OB panel: O+,abs-, rpr;;nr, rub imm. NIPT-/girl, sma and CF- Visit Date: 02/20/25 Last Updated by: Torri Monson CNM 24 yo . prev c/s x1. wrong dates. 12/27/24 sono: 6w4. EDC: 08/18/25. pap wnl, NIPT and SMA- Office Procedures OB Clinic LOC & Office Proc's Nursing/Assessment Patient Status: Established Patient OB Clinic Nursing Assessment: Medication Reconciliation, Update PMH in EMR and Vital Signs OB Clinic Coordination of Care: Complex Care and Chronic Disease 1-5, Consent,records obtained, informed consent, Education Simp Pt/Fam and Staff clarify orders Special Needs: Heart tones Established Patient Charge Established Patient Point Assignment: 115 Established Patient Point Charge: EP Level 3 (80-115) Assessment & Plan Diagnosis / Problem List (1) Encounter for supervision of high risk in second trimester, antepartum: Status: Acute Plan note for light duty, scanned to chart, AFP, discuss sab precaution, incresae fluid, freq meals, increase protein. [facility] 04/10. rtc 4 week obc Additional Plan Follow Up: 4 Weeks (obc)
== END 2025-03-22 09:55 | disposition home or self-care (01) ==
LOC: HODSOBC 09:32
PROVIDERS: Supervising Provider Advanced Practice Midwife; Visit Provider Advanced Practice Midwife
DX: O09.292 Supervision of pregnancy with other poor reproductive or obstetric history, second trimester (principal); Z3A.18 18 weeks gestation of pregnancy; O34.219 Maternal care for unspecified type scar from previous cesarean delivery
CPT/HCPCS: 99213; G0463

== ENCOUNTER 2025-04-19 10:50 | Outpatient (AMB) | payer MEDICAID, SELFPAY ==
[2025-04-19 11:04] VITALS: BP 117/76; PULSE 95; RESP 18; TEMP 36.4; O2SAT 97; BMI 33.1
--- NOTE | 2025-04-19 11:04 | OBCLNT_ITS ---
Vital Signs 04/19/25 11:04 Height 1.63 m Height Method Stated Weight 87.997 kg Weight Measurement Method Standing Scale BMI 33.1 BP 117/76 Blood Pressure Source Automatic Cuff Blood Pressure Location Left Upper Arm Position Sitting Respiration 18 Pulse 95 Pulse Source Monitor Temp 97.6 F Temp Source Oral Pulse Oximetry (%) 97 Oxygen Delivery Method Room Air Allergies/Home Meds Allergies & Medications Allergies No Known Allergies Allergy (Verified 04/19/25 11:06) Medication Reconciliation vit no.95-ferrous fumarate 28 mg-folic acid 800 mcg tablet () 1 tab PO QDAY 06/11/23 [History Confirmed 04/19/25] vits no.126-ferrous fum 28 mg iron-folic acid 800 mcg tablet (Classic ) 0.126 - 28 tab PO DAILY 30 days #60 tabs 01/23/25 [Rx Confirmed 04/19/25] vits no.126-ferrous fum 28 mg iron-folic acid 800 mcg tablet (Classic ) 0.126 - 28 tab PO DAILY 30 days #60 tabs 04/19/25 [Rx] Intake Visit Data Collection New Patient or Established: Established Patient (seen at [facility] within 3 years) Reason for Visit:: CARE Seen by Clinical Staff ONLY (RN/MA): No Space Officer Required: No Do You Feel Safe at Home: Yes Authorities Contacted: N/A PCP or OBGYN visit in last 3 months: Yes Hx Now: Yes Are you currently on any form of Control: No Pain Present Currently: No Pain Scale Used: Clark-Anaya/Numerical Pain scale:: 0 Smoking Status Smoking Status: Never smoker Questionnaires Covid-19 Vaccine Questionnaire Has patient been vacinated for Covid-19 Have you been vacinated for Covid-19: Yes PHQ-9 PHQ-2 Over the last 2 weeks, how often have you been bothered by any of the following problems? 1. Little interest or pleasure in doing things: not at all 2. Feeling down, depressed, or hopeless: not at all Total score: 0 PHQ-9 3. Trouble falling or staying asleep, or sleeping too much: Not at all 4. Feeling tired or having little energy: Not at all 5. Poor appetite or overeating: Not at all 6. Feeling bad about yourself - or that you are a failure or have let yourself or your family down: Not at all 7. Trouble concentrating on things, such as reading the newspaper or watching television: Not at all 8. Moving or speaking so slowly that other people could have noticed? - Or the opposite - being so fidgety or restless that you have been moving around a lot more than usual: not at all 9. Thoughts that you would be better off or of hurting yourself in some way: Not at all Total score: 0 Source: Developed by Drs. Jun Manjarrez, Jeanne Heller, Андрей Emanuel and colleagues, with an educational wale from [email or web address]. 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 Last. October 12, 2024. Denies bleeding or cramping. Reports sure dates. Menses are every month x 5 days. Patient is a previous section x 1 for distress. Reports slight nausea. Ultrasound showed gestational sac but no pole. heart tones were not heard. hCG x 2. And transvaginal OB ultrasound was ordered SAB precautions and discussed with patient. 01/09/25 -?-?-?-?-?-?-?-?-?-?-?-?- 8w 3d 79.549 kg 123/74 123/74 Francisca Cruz, G2P 1, at approximately 10 weeks gestation, presents for review of initial labs and management of - related symptoms. No CTX/LOF/VB. No DOE/VS, Epig/RUQ pain. Reports nausea when not eating; no vomit ing. Increased appetite noted. Prior section history. Labs: Hemoglobin 11.6 g/dL Hematocrit 35.1% Blood group O-positive Serum beta-HCG 30,755 mIU/mL Antibody screen negative Urine dipstick positive for nitrites Ultrasound: Confirmed intrauterine pregn nathan Assessment & Plan: Francisca Cruz is a at approximatel y 10w0d gestation presenting for follow-up with early symptoms and positive UTI screening. 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 sono 12/27: 6w4. Change due date to 08/18/25. NIPT and carrier screen today, refill PNV, sab precaution. increase fluid. RTC 4 week OBC, mfm referal was made 02/20/25 -?-?-?-?-?-?-?-?-?-?-?-?- 14w 3d 81.42 kg 122/76 absent unknown 15 135 active no sab complaints, light FM. compliant with PNV dis cuss wrong dates. CEDD: 08/18/25. discuss NIPT and carrier scree,AFP NV, patient will call [facility] for appointment. sab precaution discuss wrong dates. CEDD: 1 10/19/24. discuss NIPT and carrier scree,AFP NV, patient will call [facility] for appointment. sab precaution. draw OB panel nv 03/22/25 -?-?-?-?-?-?-?-?-?-?-?-?- 18w 5d 83.688 kg 120/72 occasional unknown 18 145 active For repeat c/s. fainted at work. occ cramps. improved at rest. 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 AFP, MFM 04/10, discuss sab precaution, increase fluid,rest and increased protein. rtc 4 week obc 04/19/25 -?-?-?-?-?-?-?-?-?-?-?-?- 22w 5d 87.997 kg 117/76 absent unknown 22 145 active fetus active,no PTL complaints, needs refill on PNV, denies bleeding,leaking,uc f/u MFM in 4 week. 3rd tri lab nv, hydrate, ptle precaution, refer to OB at 28 week, previous c/s. refill PNV JUDY Calculator Estimated Delivery Date Method Current WG Current Estimate 08/18/25 Ultrasound #1 22w 5d Other Estimates 07/19/25 LMP (Certain) 27w 0d 08/18/25 Ultrasound #2 22w 5d Notes Visit Date: 03/22/25 Last Updated by: Torri Monson CNM OB panel: O+,abs-, rpr;;nr, rub imm. NIPT-/girl, sma and CF- Visit Date: 02/20/25 Last Updated by: Torri Monson CNM 24 yo . prev c/s x1. wrong dates. 12/27/24 sono: 6w4. EDC: 08/18/25. pap wnl, NIPT and SMA- Office Procedures OB Clinic LOC & Office Proc's Nursing/Assessment Patient Status: Established Patient OB Clinic Nursing Assessment: Medication Reconciliation, Update PMH in EMR and Vital Signs OB Clinic Coordination of Care: Complex Care and Chronic Disease 1-5, Consent,records obtained, informed consent, Education Simp Pt/Fam, Lab and Imaging orders, Results/Orders obtained and Staff clarify orders Special Needs: Heart tones Established Patient Charge Established Patient Point Assignment: 135 Established Patient Point Charge: EP Level 4 (120-155) Assessment & Plan Diagnosis / Problem List (1) Encounter for supervision of high risk in second trimester, antepartum: Status: Acute Plan discuss ptl precaution, hydrate, 3rd tri lab nv, mfm appt 4 week. rtc 4 week obc Additional Plan Follow Up: 4 Weeks (obc)
== END 2025-04-19 11:21 | disposition home or self-care (01) ==
LOC: HODSOBC 10:50
PROVIDERS: PCP Advanced Practice Midwife; Referring Provider Advanced Practice Midwife; Supervising Provider Advanced Practice Midwife; Visit Provider Advanced Practice Midwife
DX: O09.92 Supervision of high risk pregnancy, unspecified, second trimester (principal); Z3A.22 22 weeks gestation of pregnancy
CPT/HCPCS: 99214; G0463

== ENCOUNTER 2025-05-22 10:39 | Outpatient (AMB) | payer MEDICAID, SELFPAY ==
[2025-05-22 10:47] VITALS: BP 124/76; PULSE 94; RESP 16; TEMP 36.8; O2SAT 97; BMI 34.2
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
== END 2025-05-22 11:28 | disposition home or self-care (01) ==
PROVIDERS: Supervising Provider Advanced Practice Midwife; Visit Provider Advanced Practice Midwife
DX: O09.292 Supervision of pregnancy with other poor reproductive or obstetric history, second trimester (principal); O34.211 Maternal care for low transverse scar from previous cesarean delivery; Z3A.27 27 weeks gestation of pregnancy
CPT/HCPCS: 99213; G0463

== ENCOUNTER 2025-06-01 12:37 | Emergency (ER) | payer MEDICAID, SELFPAY ==
[2025-06-01 12:39] VITALS: BP 130/83; PULSE 90; RESP 18; TEMP 36.9; O2SAT 98; BMI 34.3
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
--- NOTE | 2025-06-01 14:41 | PC.NURSE ---
PATIENT STATING SHE FEELS BETTER AND WANTS TO LEAVE, AWARE THAT A US WAS ORDERED TO SEE IF SHE HAS ANY BLEEDING. PT STATES THERE IS NO BLOOD AND JUST WANTS TO FOLLOW UP WITH HER OB
== END 2025-06-01 15:00 | disposition left against medical advice (07) ==
PROVIDERS: Emergency Provider Family Medicine; PCP Family Medicine
DX: O9A.313 Physical abuse complicating pregnancy, third trimester (principal); S39.91XA Unspecified injury of abdomen, initial encounter; Y04.2XXA Assault by strike against or bumped into by another person, initial encounter; Y07.59 Other non-family member, perpetrator of maltreatment and neglect; Y92.129 Unspecified place in nursing home as the place of occurrence of the external cause; Y99.0 Civilian activity done for income or pay; Z3A.30 30 weeks gestation of pregnancy; Z53.29 Procedure and treatment not carried out because of patient's decision for other reasons
CPT/HCPCS: 76805; 81001; 99283

== ENCOUNTER 2025-06-12 14:53 | Outpatient (AMB) | payer MEDICAID, SELFPAY ==
[2025-06-12 15:06] VITALS: BP 122/77; PULSE 90; RESP 16; TEMP 522.2; TEMP 972; O2SAT 98; BMI 35.2
--- NOTE | 2025-06-12 15:06 | OBCLNT_ITS ---
Vital Signs 06/12/25 15:06 Height 1.63 m Height Method Stated Weight 93.497 kg Weight Measurement Method Standing Scale BMI 35.2 BP 122/77 Blood Pressure Source Automatic Cuff Blood Pressure Location Left Upper Arm Position Sitting Respiration 16 Pulse 90 Pulse Source Monitor Temp 972 F H Temp Source Oral Pulse Oximetry (%) 98 Oxygen Delivery Method Room Air Allergies/Home Meds Allergies & Medications Allergies No Known Allergies Allergy (Verified 06/12/25 15:08) Medication Reconciliation vit no.95-ferrous fumarate 28 mg-folic acid 800 mcg tablet () 1 tab PO QDAY 06/11/23 [History Confirmed 06/12/25] vits no.126-ferrous fum 28 mg iron-folic acid 800 mcg tablet (Classic ) 0.126 - 28 tab PO DAILY 30 days #60 tabs 01/23/25 [Rx Confirmed 06/12/25] vits no.126-ferrous fum 28 mg iron-folic acid 800 mcg tablet (Classic ) 0.126 - 28 tab PO DAILY 30 days #60 tabs 04/19/25 [Rx Confirmed 06/12/25] fluconazole 150 mg tablet 150 mg PO Q3D 2 doses #2 tabs 06/12/25 [Rx] Intake Visit Data Collection New Patient or Established: Established Patient (seen at 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 1. Little interest or pleasure in doing things: not at all 2. Feeling down, depressed, or hopeless: not at all Total score: 0 PHQ-9 3. Trouble falling or staying asleep, or sleeping too much: Not at all 4. Feeling tired or having little energy: Not at all 5. Poor appetite or overeating: Not at all 6. Feeling bad about yourself - or that you are a failure or have let yourself or your family down: Not at all 7. Trouble concentrating on things, such as reading the newspaper or watching television: Not at all 8. Moving or speaking so slowly that other people could have noticed? - Or the opposite - being so fidgety or restless that you have been moving around a lot more than usual: not at all 9. Thoughts that you would be better off or of hurting yourself in some way: Not at all Total score: 0 If you checked off any problems, how difficult have these problems made it for you to do your work, take care of things at home, or get along with other people?: not difficult at all Source: Developed by Drs. Jun Manjarrez, Jeanne Heller, Андрей Emanuel and colleagues, with an educational wale from [employer]. 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 Last. October 12, 2024. Denies bleeding or cramping. Reports sure dates. Menses are every month x 5 days. Patient is a previous section x 1 for distress. Reports slight nausea. Ultrasound showed gestational sac but no pole. heart tones were not heard. hCG x 2. And transvaginal OB ultrasound was ordered SAB precautions and discussed with patient. 01/09/25 -?-?-?-?-?-?-?-?-?-?-?-?- 8w 3d 79.549 kg 123/74 123/74 Francisca Cruz, G2P 1, at approximately 10 weeks gestation, presents for review of initial labs and management of - related symptoms. No CTX/LOF/VB. No DOE/VS, Epig/RUQ pain. Reports nausea when not eating; no vomit ing. Increased appetite noted. Prior section history. Labs: Hemoglobin 11.6 g/dL Hematocrit 35.1% Blood group O-positive Serum beta-HCG 30,755 mIU/mL Antibody screen negative Urine dipstick positive for nitrites Ultrasound: Confirmed intrauterine pregn nathan Assessment & Plan: Francisca Cruz is a at approximatel y 10w0d gestation presenting for follow-up with early symptoms and positive UTI screening. 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 sono 12/27: 6w4. Change due date to 08/18/25. NIPT and carrier screen today, refill PNV, sab precaution. increase fluid. RTC 4 week OBC, mfm referal was made 02/20/25 -?-?-?-?-?-?-?-?-?-?-?-?- 14w 3d 81.42 kg 122/76 absent unknown 15 135 active no sab complaints, light FM. compliant with PNV dis cuss wrong dates. CEDD: 08/18/25. discuss NIPT and carrier scree,AFP NV, patient will call [facility] for appointment. sab precaution discuss wrong dates. CEDD: 1 10/19/24. discuss NIPT and carrier scree,AFP NV, patient will call [facility] for appointment. sab precaution. draw OB panel nv 03/22/25 -?-?-?-?-?-?-?-?-?-?-?-?- 18w 5d 83.688 kg 120/72 occasional unknown 18 145 active For repeat c/s. fainted at work. occ cramps. improved at rest. 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 AFP, MFM 04/10, discuss sab precaution, increase fluid,rest and increased protein. rtc 4 week obc 04/19/25 -?-?-?-?-?-?-?-?-?-?-?-?- 22w 5d 87.997 kg 117/76 absent unknown 22 145 active fetus active,no PTL complaints, needs refill on PNV, denies bleeding,leaking,uc f/u MFM in 4 week. 3rd tri lab nv, hydrate, ptle precaution, refer to OB at 28 week, previous c/s. refill PNV 05/22/25 -?-?-?-?-?-?-?-?-?-?-?-?- 27w 3d 90.889 kg 124/76 absent unknown 27 130 active No OB complaints. Reports movement. Patient has a follow-up ultrasound in June. Denies leaking or bleeding or contractions Third trimester labs with OB panel today. Keep appointment with maternal- medicine for follow-up ultrasound. And schedule with OB in 3 weeks for repeat JUDY Calculator Estimated Delivery Date Method Current WG Current Estimate 08/18/25 Ultrasound #1 30w 3d Other Estimates 07/19/25 LMP (Certain) 34w 5d 08/18/25 Ultrasound #2 30w 3d 08/18/25 Manual 30w 3d final judy, 12/27:6w4, judy 08/18/25 Notes Visit Date: 03/22/25 Last Updated by: Torri Monson CNM OB panel: O+,abs-, rpr;;nr, rub imm. NIPT-/girl, sma and CF- Visit Date: 02/20/25 Last Updated by: Torri Monson CNM 24 yo . prev c/s x1. wrong dates. 12/27/24 sono: 6w4. EDC: 08/18/25. pap wnl, NIPT and SMA- Office Procedures OBC Clinic LOC & Office Proc's Nursing/Assessment Patient Status: Established Patient OB Clinic Nursing Assessment: Medication Reconciliation, Update PMH in EMR and Vital Signs OB Clinic Coordination of Care: Education Complex Pt/Fam, Consent,records obtained, informed consent, Lab and Imaging orders, Results/Orders obtained and Staff clarify orders Special Needs: Heart tones Established Patient Charge Established Patient Point Assignment: 115 Established Patient Point Charge: EP Level 3 (80-115) Assessment & Plan Diagnosis / Problem List (1) Maternal care for low transverse scar from previous delivery: Status: Acute Plan Problem List - , 30 weeks gestation - Vulvovaginal candidiasis Assessment 30-week patient ( 2, para 1) presenting with symptoms suggestive of vaginal yeast infection, including cottage cheese-like discharge and increased vaginal discharge, which she reports as new symptoms not experienced during her first . Patient denies urinary tract infection symptoms including frequency and urgency. heart rate is normal at 165 beats per minute, and patient reports active movement with no contractions or other -related concerns. Plan - Schedule for August 11 at 7:30 AM (39 weeks gestation) - Treat presumed yeast infection - Continue care with Torri PRATER) until final pre-operative visit - Final visit with Dr. Fleming before - Check lab results when available (GBS pending) 1. Progress Reviewed gestational age (30 weeks and 0 days), growth, and heart rate (165 bpm). Planned frequent visits (every 2 weeks until 36 weeks, then weekly). 2. Instructed patient to monitor movements and report decreases immediatel y. 3. Testing Counseled on routine third-trimester labs per guidelines. Discussed potential need for ultrasound or monitoring based on risk factors. 4. Preeclampsia Precaution Educated on preeclampsia signs: severe headache, vision changes, right upper quadrant pain, sudden swelling. Advised urgent reporting of symptoms and discussed blood pressure monitoring if high risk. 5. Labor Precautions Reviewed labor signs: regular contractions, pelvic pressure, back pain, bleeding, or fluid leakage. Instructed to seek immediate care for these symptoms. 6. Lifestyle and Delivery Preparation Reinforced vitamins, nutrition, and safe activity. Discussed plan, pain management, and . Advised on labor preparation (e.g., hospital bag) and expectations. 7. Psychosocial Support Assessed emotional well-being and offered resources for mental health or parenting support.
== END 2025-06-12 15:17 | disposition home or self-care (01) ==
LOC: HODSOBC 14:53
PROVIDERS: Supervising Provider Obstetrics & Gynecology; Visit Provider Obstetrics & Gynecology
DX: O09.293 Supervision of pregnancy with other poor reproductive or obstetric history, third trimester (principal); O34.211 Maternal care for low transverse scar from previous cesarean delivery; O09.892 Supervision of other high risk pregnancies, second trimester; O98.812 Other maternal infectious and parasitic diseases complicating pregnancy, second trimester; B37.31 Acute candidiasis of vulva and vagina; Z3A.30 30 weeks gestation of pregnancy
CPT/HCPCS: 99213; G0463

== ENCOUNTER 2025-06-23 10:56 | Outpatient (AMB) | payer MEDICAID, SELFPAY ==
[2025-06-23 11:19] VITALS: BP 115/76; PULSE 83; RESP 16; TEMP 36.4; O2SAT 98; BMI 34.9
--- NOTE | 2025-06-23 11:19 | OBCLNT_ITS ---
Vital Signs 06/23/25 11:19 Height 1.63 m Height Method Stated Weight 92.703 kg Weight Measurement Method Standing Scale BMI 34.9 BP 115/76 Blood Pressure Source Automatic Cuff Blood Pressure Location Left Upper Arm Position Sitting Respiration 16 Pulse 83 Pulse Source Monitor Temp 97.5 F Temp Source Oral Pulse Oximetry (%) 98 Oxygen Delivery Method Room Air Allergies/Home Meds Allergies & Medications Allergies No Known Allergies Allergy (Verified 06/23/25 11:21) Medication Reconciliation vit no.95-ferrous fumarate 28 mg-folic acid 800 mcg tablet () 1 tab PO QDAY 06/11/23 [History Confirmed 06/23/25] vits no.126-ferrous fum 28 mg iron-folic acid 800 mcg tablet (Classic ) 0.126 - 28 tab PO DAILY 30 days #60 tabs 01/23/25 [Rx Confirmed 06/23/25] vits no.126-ferrous fum 28 mg iron-folic acid 800 mcg tablet (Classic ) 0.126 - 28 tab PO DAILY 30 days #60 tabs 04/19/25 [Rx Confirmed 06/23/25] fluconazole 150 mg tablet 150 mg PO Q3D 2 doses #2 tabs 06/12/25 [Rx Confirmed 06/23/25] Intake Visit Data Collection New Patient or Established: Established Patient (seen at [facility] within 3 years) Reason for Visit:: CARE Seen by Clinical Staff ONLY (RN/MA): No Section Supervisor Required: No Do You Feel Safe at Home: Yes Authorities Contacted: N/A PCP or OBGYN visit in last 3 months: Yes Hx Now: No Are you currently on any form of Control: No Pain Present Currently: No Pain Scale Used: Clark-Anaya/Numerical Pain scale:: 0 Smoking Status Smoking Status: Never smoker Questionnaires Covid-19 Vaccine Questionnaire Has patient been vacinated for Covid-19 Have you been vacinated for Covid-19: Yes PHQ-9 PHQ-2 Over the last 2 weeks, how often have you been bothered by any of the following problems? 1. Little interest or pleasure in doing things: not at all 2. Feeling down, depressed, or hopeless: not at all Total score: 0 PHQ-9 3. Trouble falling or staying asleep, or sleeping too much: Not at all 4. Feeling tired or having little energy: Not at all 5. Poor appetite or overeating: Not at all 6. Feeling bad about yourself - or that you are a failure or have let yourself or your family down: Not at all 7. Trouble concentrating on things, such as reading the newspaper or watching television: Not at all 8. Moving or speaking so slowly that other people could have noticed? - Or the opposite - being so fidgety or restless that you have been moving around a lot more than usual: not at all 9. Thoughts that you would be better off or of hurting yourself in some wa y: Not at all Total score: 0 Source: Developed by Drs. Jun Manjarrez, Jeanne Heller, Андрей Emanuel and colleagues, with an educational wale from [employer]. 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 Last. October 12, 2024. Denies bleeding or cramping. Reports sure dates. Menses are every month x 5 days. Patient is a previous section x 1 for distress. Reports slight nausea. Ultrasound showed gestational sac but no pole. heart tones were not heard. hCG x 2. And transvaginal OB ultrasound was ordered SAB precautions and discussed with patient. 01/09/25 -?-?-?-?-?-?-?-?-?-?-?-?- 8w 3d 79.549 kg 123/74 123/74 Francisca Cruz, G2P 1, at approximately 10 weeks gestation, presents for review of initial labs and management of - related symptoms. No CTX/LOF/VB. No DOE/VS, Epig/RUQ pain. Reports nausea when not eating; no vomit ing. Increased appetite noted. Prior section history. Labs: Hemoglobin 11.6 g/dL Hematocrit 35.1% Blood group O-positive Serum beta-HCG 30,755 mIU/mL Antibody screen negative Urine dipstick positive for nitrites Ultrasound: Confirmed intrauterine pregn nathan Assessment & Plan: Francisca Cruz is a at approximatel y 10w0d gestation presenting for follow-up with early symptoms and positive UTI screening. Intrauterine Schedule 12-week ultrasound at 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 sono 12/27: 6w4. Change due date to 08/18/25. NIPT and carrier screen today, refill PNV, sab precaution. increase fluid. RTC 4 week OBC, mfm referal was made 02/20/25 -?-?-?-?-?-?-?-?-?-?-?-?- 14w 3d 81.42 kg 122/76 absent unknown 15 135 active no sab complaints, light FM. compliant with PNV dis cuss wrong dates. CEDD: 08/18/25. discuss NIPT and carrier scree,AFP NV, patient will call [facility] for appointment. sab precaution discuss wrong dates. CEDD: 1 10/19/24. discuss NIPT and carrier scree,AFP NV, patient will call [facility] for appointment. sab precaution. draw OB panel nv 03/22/25 -?-?-?-?-?-?-?-?-?-?-?-?- 18w 5d 83.688 kg 120/72 occasional unknown 18 145 active For repeat c/s. fainted at work. occ cramps. improved at rest. 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 AFP, MFM 04/10, discuss sab precaution, increase fluid,rest and increased protein. rtc 4 week obc 04/19/25 -?-?-?-?-?-?-?-?-?-?-?-?- 22w 5d 87.997 kg 117/76 absent unknown 22 145 active fetus active,no PTL complaints, needs refill on PNV, denies bleeding,leaking,uc f/u MFM in 4 week. 3rd tri lab nv, hydrate, ptle precaution, refer to OB at 28 week, previous c/s. refill PNV 05/22/25 -?-?-?-?-?-?-?-?-?-?-?-?- 27w 3d 90.889 kg 124/76 absent unknown 27 130 active No OB complaints. Reports movement. Patient has a follow-up ultrasound in June. Denies leaking or bleeding or contractions Third trimester labs with OB panel today. Keep appointment with maternal- medicine for follow-up ultrasound. And schedule with OB in 3 weeks for repeat 06/12/25 -?-?-?-?-?-?-?-?-?-?-?-?- 30w 3d 93.497 kg 122/77 absent cephalic 31 165 active - Patient reports no contractions or problems with the . - She describes new onset of vaginal sym ptoms: - Increased vaginal discharge - Discharge described as cottage iraj se-like - Patient suspects a yeast infection b ased on her symptoms - No prior history of yeast infections - Denies urinary symptoms (frequency, urgency) - Patient expresses concern about these new symptoms, as she did not experience them in her previous . - Schedule for August 11 at 7:30 AM (39 weeks gestation) - Treat presumed yeast infection - Continue care with Torri PRATER) until fi nal pre-operative visit - Final visit with Dr. Fleming before C-se ction - Check lab results when available (GBS pending) 06/23/25 -?-?-?-?-?-?-?-?-?-?-?-?- 32w 0d 92.703 kg 115/76 occasional cephalic 32 156 active complaints of back ache, pressure. 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 RTC 8 wk pp after repeat c/s. discuss ptl precaution. fkc bid. rtc 2 week obc disability starting 06/22/25. RTC 8 wk pp after repeat c/s. discuss ptl precaution. fkc bid. rtc 2 week obc. f/u mfm 1 week JUDY Calculator Estimated Delivery Date Method Current WG Current Estimate 08/18/25 Ultrasound #1 32w 0d Other Estimates 07/19/25 LMP (Certain) 36w 2d 08/18/25 Ultrasound #2 32w 0d 08/18/25 Manual 32w 0d final judy, 12/27:6w4, judy 08/18/25 Notes Visit Date: 06/23/25 Last Updated by: Torri Monson CNM 1 hr gtt: 99 Visit Date: 03/22/25 Last Updated by: Torri Monson CNM OB panel: O+,abs-, rpr;;nr, rub imm. NIPT-/girl, sma and CF- Visit Date: 02/20/25 Last Updated by: Torri Monson CNM 24 yo . prev c/s x1. wrong dates. 12/27/24 sono: 6w4. EDC: 08/18/25. pap wnl, NIPT and SMA- Office Procedures OBC Clinic LOC & Office Proc's Nursing/Assessment Patient Status: Established Patient OB Clinic Nursing Assessment: Medication Reconciliation, Update PMH in EMR and Vital Signs OB Clinic Coordination of Care: Complex Care and Chronic Disease 1-5, Consent,records obtained, informed consent, Education Simp Pt/Fam, 1 Ins Authorization, Lab and Imaging orders, Results/Orders obtained and Staff clarify orders Special Needs: Heart tones Established Patient Charge Established Patient Point Assignment: 150 Established Patient Point Charge: EP Level 4 (120-155) Assessment & Plan Diagnosis / Problem List (1) Encounter for supervision of high risk in third trimester, antepartum: Status: Acute (2) , high-risk, history of previous obstetrical problem: Status: Acute Qualifiers: Trimester: third trimester Qualified Code(s): O09.293 - Supervision of with other poor reproductive or obstetric history, third trimester Plan disability starting 06/15/25. RTC 8 week pp after repeat c/s, discuss PTL precaution, fkc bid. RTC OBC 2 week. f/u with MFM 1 week Additional Plan Follow Up: 2 Weeks (obc)
== END 2025-06-23 12:13 | disposition home or self-care (01) ==
LOC: HODSOBC 10:56
PROVIDERS: Supervising Provider Advanced Practice Midwife; Visit Provider Advanced Practice Midwife
DX: O09.893 Supervision of other high risk pregnancies, third trimester (principal); Z3A.32 32 weeks gestation of pregnancy; O34.219 Maternal care for unspecified type scar from previous cesarean delivery
CPT/HCPCS: 99214; G0463

== ENCOUNTER 2025-07-06 09:27 | Outpatient (AMB) | payer MEDICAID, SELFPAY ==
[2025-07-06 09:39] VITALS: BP 112/75; PULSE 96; RESP 18; TEMP 36.6; O2SAT 97; BMI 35.0
--- NOTE | 2025-07-06 09:39 | OBCLNT_ITS ---
Vital Signs 07/06/25 09:39 Height 1.63 m Height Method Stated Weight 93.1 kg Weight Measurement Method Standing Scale BMI 35.0 BP 112/75 Blood Pressure Source Automatic Cuff Blood Pressure Location Left Upper Arm Position Sitting Respiration 18 Pulse 96 Pulse Source Monitor Temp 97.8 F Temp Source Oral Pulse Oximetry (%) 97 Oxygen Delivery Method Room Air Allergies/Home Meds Allergies & Medications Allergies No Known Allergies Allergy (Verified 07/06/25 09:40) Medication Reconciliation vit no.95-ferrous fumarate 28 mg-folic acid 800 mcg tablet () 1 tab PO QDAY 06/11/23 [History Confirmed 07/06/25] vits no.126-ferrous fum 28 mg iron-folic acid 800 mcg tablet (Classic ) 0.126 - 28 tab PO DAILY 30 days #60 tabs 01/23/25 [Rx Confirmed 07/06/25] vits no.126-ferrous fum 28 mg iron-folic acid 800 mcg tablet (Classic ) 0.126 - 28 tab PO DAILY 30 days #60 tabs 04/19/25 [Rx Confirmed 07/06/25] fluconazole 150 mg tablet 150 mg PO Q3D 2 doses #2 tabs 06/12/25 [Rx Confirmed 07/06/25] ferrous sulfate 325 mg (65 mg iron) tablet 325 mg PO BID #60 tabs 07/06/25 [Rx] Intake Visit Data Collection New Patient or Established: Established Patient (seen at [facility] within 3 years) Reason for Visit:: CARE Seen by Clinical Staff ONLY (RN/MA): No Public Works Technician Required: No Do You Feel Safe at Home: Yes Authorities Contacted: N/A PCP or OBGYN visit in last 3 months: Yes Hx Now: Yes Are you currently on any form of Control: No Pain Present Currently: No Pain Scale Used: Clark-Anaya/Numerical Pain scale:: 0 Smoking Status Smoking Status: Never smoker Immunizations Flu Vaccine in the Last 12 Months: No Flu Vaccine Exclusion Criteria: No Exclusion Criteria Questionnaires Covid-19 Vaccine Questionnaire Has patient been vacinated for Covid-19 Have you been vacinated for Covid-19: Yes PHQ-9 PHQ-2 Over the last 2 weeks, how often have you been bothered by any of the following problems? 1. Little interest or pleasure in doing things: not at all 2. Feeling down, depressed, or hopeless: not at all Total score: 0 PHQ-9 3. Trouble falling or staying asleep, or sleeping too much: Not at all 4. Feeling tired or having little energy: Not at all 5. Poor appetite or overeating: Not at all 6. Feeling bad about yourself - or that you are a failure or have let yourself or your family down: Not at all 7. Trouble concentrating on things, such as reading the newspaper or watching television: Not at all 8. Moving or speaking so slowly that other people could have noticed? - Or the opposite - being so fidgety or restless that you have been moving around a lot more than usual: not at all 9. Thoughts that you would be better off or of hurting yourself in some way: Not at all Total score: 0 Source: Developed by Drs. Jun Manjarrez, Jeanne Heller, Андрей Emanuel and colleagues, with an educational wale from [employer]. 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 Last. October 12, 2024. Denies bleeding or cramping. Reports sure dates. Menses are every month x 5 days. Patient is a previous section x 1 for distress. Reports slight nausea. Ultrasound showed gestational sac but no pole. heart tones were not heard. hCG x 2. And transvaginal OB ultrasound was ordered SAB precautions and discussed with patient. 01/09/25 -?-?-?-?-?-?-?-?-?-?-?-?- 8w 3d 79.549 kg 123/74 123/74 Francisca Cruz, G2P 1, at approximately 10 weeks gestation, presents for review of initial labs and management of - related symptoms. No CTX/LOF/VB. No DOE/VS, Epig/RUQ pain. Reports nausea when not eating; no vomit ing. Increased appetite noted. Prior section history. Labs: Hemoglobin 11.6 g/dL Hematocrit 35.1% Blood group O-positive Serum beta-HCG 30,755 mIU/mL Antibody screen negative Urine dipstick positive for nitrites Ultrasound: Confirmed intrauterine pregn nathan Assessment & Plan: Francisca Cruz is a at approximatel y 10w0d gestation presenting for follow-up with early symptoms and positive UTI screening. Intrauterine Schedule 12-week ultrasound at [facility] (genetic screening) Schedule 20-week ultrasound to assess C- section scar Rn Geriatric on diet: encourage high-protein, homemade foods; avoid junk/fried foods Plan delivery at [facility] Follow-up in 2 weeks for office ultrasou nd Urinary tract infection Prescribe empiric antibiotics for UTI Repeat urine dipstick after completing a ntibiotics If persistent, send urine culture 01/23/25 -?-?-?-?-?-?-?-?-?-?-?-?- 10w 3d 78.642 kg 117/75 absent wrong dates. sono 12/27: 6w4. Change due date to 08/18/25. NIPT and carrier screen today, refill PNV, sab precaution. increase fluid. RTC 4 week OBC, mfm referal was made 02/20/25 -?-?-?-?-?-?-?-?-?-?-?-?- 14w 3d 81.42 kg 122/76 absent unknown 15 135 active no sab complaints, light FM. compliant with PNV dis cuss wrong dates. CEDD: 08/18/25. discuss NIPT and carrier scree,AFP NV, patient will call [facility] for appointment. sab precaution discuss wrong dates. CEDD: 1 10/19/24. discuss NIPT and carrier scree,AFP NV, patient will call [facility] for appointment. sab precaution. draw OB panel nv 03/22/25 -?-?-?-?-?-?-?-?-?-?-?-?- 18w 5d 83.688 kg 120/72 occasional unknown 18 145 active For repeat c/s. fainted at work. occ cramps. improved at rest. 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 AFP, MFM 04/10, discuss sab precaution, increase fluid,rest and increased protein. rtc 4 week obc 04/19/25 -?-?-?-?-?-?-?-?-?-?-?-?- 22w 5d 87.997 kg 117/76 absent unknown 22 145 active fetus active,no PTL complaints, needs refill on PNV, denies bleeding,leaking,uc f/u MFM in 4 week. 3rd tri lab nv, hydrate, ptle precaution, refer to OB at 28 week, previous c/s. refill PNV 05/22/25 -?-?-?-?-?-?-?-?-?-?-?-?- 27w 3d 90.889 kg 124/76 absent unknown 27 130 active No OB complaints. Reports movement. Patient has a follow-up ultrasound in June. Denies leaking or bleeding or contractions Third trimester labs with OB panel today. Keep appointment with maternal- medicine for follow-up ultrasound. And schedule with OB in 3 weeks for repeat 06/12/25 -?-?-?-?-?-?-?-?-?-?-?-?- 30w 3d 93.497 kg 122/77 absent cephalic 31 165 active - Patient reports no contractions or problems with the . - She describes new onset of vaginal sym ptoms: - Increased vaginal discharge - Discharge described as cottage iraj se-like - Patient suspects a yeast infection b ased on her symptoms - No prior history of yeast infections - Denies urinary symptoms (frequency, urgency) - Patient expresses concern about these new symptoms, as she did not experience them in her previous . - Schedule for August 11 at 7:30 AM (39 weeks gestation) - Treat presumed yeast infection - Continue care with Torri PRATER) until fi nal pre-operative visit - Final visit with Dr. Fleming before C-se ction - Check lab results when available (GBS pending) 06/23/25 -?-?-?-?-?-?-?-?-?-?-?-?- 32w 0d 92.703 kg 115/76 occasional cephalic 32 156 active complaints of back ache, pressure. 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 RTC 8 wk pp after repeat c/s. discuss ptl precaution. fkc bid. rtc 2 week obc disability starting 06/22/25. RTC 8 wk pp after repeat c/s. discuss ptl precaution. fkc bid. rtc 2 week obc. f/u mfm 1 week 07/06/25 -?-?-?-?-?-?-?-?-?-?-?-?- 33w 6d 93.1 kg 112/75 occasional breech 33 146 active Continued complaints of backache. Reports movement. Denies leaking or bleeding. Occasional contraction. Patient started her disability June 22. Discussed kick count and labor Precautions and labor precautions. Patient will be scheduled with OB for previous and repeat JUDY Calculator Estimated Delivery Date Method Current WG Current Estimate 08/18/25 Ultrasound #1 33w 6d Other Estimates 07/19/25 LMP (Certain) 38w 1d 08/18/25 Ultrasound #2 33w 6d 08/18/25 Manual 33w 6d final judy, 12/27:6w4, judy 08/18/25 Notes Visit Date: 07/06/25 Last Updated by: Torri Monson CNM 06/09: A1c: 5.1, 1 hr gtt:wnl Visit Date: 06/23/25 Last Updated by: Torri Monson CNM 1 hr gtt: 99 Visit Date: 03/22/25 Last Updated by: Torri Monson CNM OB panel: O+,abs-, rpr;;nr, rub imm. NIPT-/girl, sma and CF- Visit Date: 02/20/25 Last Updated by: Torri Monson CNM 24 yo . prev c/s x1. wrong dates. 12/27/24 sono: 6w4. EDC: 08/18/25. pap wnl, NIPT and SMA- Office Procedures OBC Clinic LOC & Office Proc's Nursing/Assessment Patient Status: Established Patient OB Clinic Nursing Assessment: Medication Reconciliation, Update PMH in EMR and Vital Signs OB Clinic Coordination of Care: Complex Care and Chronic Disease 1-5, Con sent,records obtained, informed consent, Education Simp Pt/Fam, 1 Ins Authorization, Lab and Imaging orders, Results/Orders obtained and Staff clarify orders Special Needs: Heart tones Established Patient Charge Established Patient Point Assignment: 150 Established Patient Point Charge: EP Level 4 (120-155) Assessment & Plan Diagnosis / Problem List (1) Encounter for supervision of high risk in third trimester, antepartum: Status: Acute Plan schedule with OB for repeat c./s. discuss ptl precaution, fkc bid. discuss ER precaution, rtc 2 week obc Additional Plan Follow Up: 2 Weeks (obc)
== END 2025-07-06 10:14 | disposition home or self-care (01) ==
LOC: HODSOBC 09:27
PROVIDERS: Supervising Provider Advanced Practice Midwife; Visit Provider Advanced Practice Midwife
DX: O09.293 Supervision of pregnancy with other poor reproductive or obstetric history, third trimester (principal); O34.219 Maternal care for unspecified type scar from previous cesarean delivery; Z3A.32 32 weeks gestation of pregnancy
CPT/HCPCS: 99214; G0463

== ENCOUNTER 2025-07-18 10:01 | Outpatient (AMB) | payer MEDICAID, SELFPAY ==
--- NOTE | 2025-07-18 10:09 | OBCLNT_ITS ---
Vital Signs 07/18/25 10:10 Height 1.63 m Height Method Stated Weight 94.347 kg Weight Measurement Method Standing Scale BMI 35.5 BP 118/78 Blood Pressure Source Automatic Cuff Blood Pressure Location Right Upper Arm Position Sitting Respiration 18 Pulse 93 Pulse Source Monitor Temp 97.1 F Temp Source Temporal Artery Scan Pulse Oximetry (%) 97 Oxygen Delivery Method Room Air Allergies/Home Meds Allergies & Medications Allergies No Known Allergies Allergy (Verified 07/18/25 10:10) Medication Reconciliation vit no.95-ferrous fumarate 28 mg-folic acid 800 mcg tablet () 1 tab PO QDAY 06/11/23 [History Confirmed 07/18/25] vits no.126-ferrous fum 28 mg iron-folic acid 800 mcg tablet (Classic ) 0.126 - 28 tab PO DAILY 30 days #60 tabs 01/23/25 [Rx Confirmed 07/18/25] vits no.126-ferrous fum 28 mg iron-folic acid 800 mcg tablet (Classic ) 0.126 - 28 tab PO DAILY 30 days #60 tabs 04/19/25 [Rx Confirmed 07/18/25] fluconazole 150 mg tablet 150 mg PO Q3D 2 doses #2 tabs 06/12/25 [Rx Confirmed 07/18/25] ferrous sulfate 325 mg (65 mg iron) tablet 325 mg PO BID #60 tabs 07/06/25 [Rx Confirmed 07/18/25] Intake Visit Data Collection New Patient or Established: Established Patient (seen at [facility] within 3 years) Reason for Visit:: OBC / GBS Seen by Clinical Staff ONLY (RN/MA): No Picture Engraver Required: No Do You Feel Safe at Home: Yes Authorities Contacted: N/A PCP or OBGYN visit in last 3 months: Yes Date of Last PCP or OBGYN visit: 07/06/25 Hx Now: Yes Are you currently on any form of Control: No Pain Present Currently: No Pain Scale Used: Clark-Anaya/Numerical Pain scale:: 0 Smoking Status Smoking Status: Never smoker Immunizations Flu Vaccine in the Last 12 Months: No Flu Vaccine Exclusion Criteria: No Exclusion Criteria Questionnaires Covid-19 Vaccine Questionnaire Has patient been vacinated for Covid-19 Have you been vacinated for Covid-19: No PHQ-9 PHQ-2 Over the last 2 weeks, how often have you been bothered by any of the following problems? 1. Little interest or pleasure in doing things: not at all 2. Feeling down, depressed, or hopeless: not at all Total score: 0 PHQ-9 3. Trouble falling or staying asleep, or sleeping too much: Not at all 4. Feeling tired or having little energy: Not at all 5. Poor appetite or overeating: Not at all 6. Feeling bad about yourself - or that you are a failure or have let yourself or your family down: Not at all 7. Trouble concentrating on things, such as reading the newspaper or watching television: Not at all 8. Moving or speaking so slowly that other people could have noticed? - Or the opposite - being so fidgety or restless that you have been moving around a lot more than usual: not at all 9. Thoughts that you would be better off or of hurting yourself in some way: Not at all Total score: 0 If you checked off any problems, how difficult have these problems made it for you to do your work, take care of things at home, or get along with other people?: not difficult at all Source: Developed by Drs. Jun Manjarrez, Jeanne Heller, Андрей Emanuel and colleagues, with an educational wale from [employer]. 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 Last. October 12, 2024. Denies bleeding or cramping. Reports sure dates. Menses are every month x 5 days. Patient is a previous section x 1 for distress. Reports slight nausea. Ultrasound showed gestational sac but no pole. heart tones were not heard. hCG x 2. And transvaginal OB ultrasound was ordered SAB precautions and discussed with patient. 01/09/25 -?-?-?-?-?-?-?-?-?-?-?-?- 8w 3d 79.549 kg 123/74 123/74 Francisca Cruz, G2P 1, at approximately 10 weeks gestation, presents for review of initial labs and management of - related symptoms. No CTX/LOF/VB. No DOE/VS, Epig/RUQ pain. Reports nausea when not eating; no vomit ing. Increased appetite noted. Prior section history. Labs: Hemoglobin 11.6 g/dL Hematocrit 35.1% Blood group O-positive Serum beta-HCG 30,755 mIU/mL Antibody screen negative Urine dipstick positive for nitrites Ultrasound: Confirmed intrauterine pregn nathan Assessment & Plan: Francisca Cruz is a at approximatel y 10w0d gestation presenting for follow-up with early symptoms and positive UTI screening. 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 sono 12/27: 6w4. Change due date to 08/18/25. NIPT and carrier screen today, refill PNV, sab precaution. increase fluid. RTC 4 week OBC, mfm referal was made 02/20/25 -?--?-?-?-?-?-?-?-?-?-?-?- 14w 3d 81.42 kg 122/76 absent unknown 15 135 active no sab complaints, light FM. compliant with PNV dis cuss wrong dates. CEDD: 08/18/25. discuss NIPT and carrier scree,AFP NV, patient will call [facility] for appointment. sab precaution discuss wrong dates. CEDD: 1 10/19/24. discuss NIPT and carrier scree,AFP NV, patient will call [facility] for appointment. sab precaution. draw OB panel nv 03/22/25 -?-?-?-?-?-?-?-?-?-?-?-?- 18w 5d 83.688 kg 120/72 occasional unknown 18 145 active For repeat c/s. fainted at work. occ cramps. improved at rest. 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 AFP, MFM 04/10, discuss sab precaution, increase fluid,rest and increased protein. rtc 4 week obc 04/19/25 -?-?-?-?-?-?-?-?-?-?-?-?- 22w 5d 87.997 kg 117/76 absent unknown 22 145 active fetus active,no PTL complaints, needs refill on PNV, denies bleeding,leaking,uc f/u MFM in 4 week. 3rd tri lab nv, hydrate, ptle precaution, refer to OB at 28 week, previous c/s. refill PNV 05/22/25 -?-?-?-?-?-?-?-?-?-?-?-?- 27w 3d 90.889 kg 124/76 absent unknown 27 130 active No OB complaints. Reports movement. Patient has a follow-up ultrasound in June. Denies leaking or bleeding or contractions Third trimester labs with OB panel today. Keep appointment with maternal- medicine for follow-up ultrasound. And schedule with OB in 3 weeks for repeat 06/12/25 -?-?-?-?-?-?-?-?-?-?-?-?- 30w 3d 93.497 kg 122/77 absent cephalic 31 165 active - Patient reports no contractions or problems with the . - She describes new onset of vaginal sym ptoms: - Increased vaginal discharge - Discharge described as cottage iraj se-like - Patient suspects a yeast infection b ased on her symptoms - No prior history of yeast infections - Denies urinary symptoms (frequency, urgency) - Patient expresses concern about these new symptoms, as she did not experience them in her previous . - Schedule for August 11 at 7:30 AM (39 weeks gestation) - Treat presumed yeast infection - Continue care with Torri (CN) until fi nal pre-operative visit - Final visit with Dr. Fleming before C-se ction - Check lab results when available (GBS pending) 06/23/25 -?-?-?-?-?-?-?-?-?-?-?-?- 32w 0d 92.703 kg 115/76 occasional cephalic 32 156 active complaints of back ache, pressure. 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 RTC 8 wk pp after repeat c/s. discuss ptl precaution. fkc bid. rtc 2 week obc disability starting 06/22/25. RTC 8 wk pp after repeat c/s. discuss ptl precaution. fkc bid. rtc 2 week obc. f/u mfm 1 week 07/06/25 -?-?-?-?-?-?-?-?-?-?-?-?- 33w 6d 93.1 kg 112/75 occasional breech 33 146 active Continued complaints of backache. Reports movement. Denies leaking or bleeding. Occasional contraction. Patient started her disability June 22. Discussed kick count and labor Precautions and labor precautions. Patient will be scheduled with OB for previous and repeat 07/18/25 -?-?-?-?-?-?-?-?-?-?-?-?- 35w 4d 94.347 kg 118/78 occasional cephalic 36 155 active - She reports the baby is active with no contractions or problems. - She denies any current concerns or com plications. - Patient has a scheduled repeat section planned for Novem - GBS culture performed today at 35 weeks 4 days gestation - Scheduled repeat section on N ovember - Patient to arrive 2 hours before vashti julio section - NPO (nothing by mouth) for 8 hours romy or to section - Follow-up visits to be weekly until ce sarean section - Next appointment scheduled for one rajwinder legih JUDY Calculator Estimated Delivery Date Method Current WG Current Estimate 08/18/25 Ultrasound #1 35w 4d Other Estimates 07/19/25 LMP (Certain) 39w 6d 08/18/25 Ultrasound #2 35w 4d 08/18/25 Manual 35w 4d final judy, 12/27:6w4, judy 08/18/25 Notes Visit Date: 07/06/25 Last Updated by: Torri Monson CNM 06/09: A1c: 5.1, 1 hr gtt:wnl Visit Date: 06/23/25 Last Updated by: Torri Monson CNM 1 hr gtt: 99 Visit Date: 03/22/25 Last Updated by: Torri Monson CNM OB panel: O+,abs-, rpr;;nr, rub imm. NIPT-/girl, sma and CF- Visit Date: 02/20/25 Last Updated by: Torri Monson CNM 24 yo . prev c/s x1. wrong dates. 12/27/24 sono: 6w4. EDC: 08/18/25. pap wnl, NIPT and SMA- Office Procedures OBC Clinic LOC & Office Proc's Nursing/Assessment Patient Status: Established Patient OB Clinic Nursing Assessment: Medication Reconciliation, Update PMH in EMR and Vital Signs OB Clinic Coordination of Care: Complex Care and Chronic Disease 1-5, Education Complex Pt/Fam, Consent,records obtained, informed consent, Lab and Imaging orders, Results/Orders obtained and Staff clarify orders Special Needs: Heart tones Miscellaneous Interventions: Culture Specimen Collection Established Patient Charge Established Patient Point Assignment: 155 Established Patient Point Charge: EP Level 4 (120-155) Assessment & Plan Diagnosis / Problem List (1) , high-risk, history of previous obstetrical problem: Status: Acute Qualifiers: Trimester: third trimester Qualified Code(s): O09.293 - Supervision of with other poor reproductive or obstetric history, third trimester (2) Encounter for supervision of high risk in third trimester, antepartum: Status: Acute Plan Problem List - at 35 weeks and 4 days gestation - History of delivery - Scheduled repeat section Assessment 35-week 4-day 2 para 1 patient presenting for routine visit with scheduled repeat section. heart rate is normal at 150-151 bpm. Patient reports active movement with no contractions or other concerning symptoms. Group B Streptococcus screening was performed as indicated for gestational age. Plan - GBS culture performed today at 35 weeks 4 days gestation - Scheduled repeat section on August 11 - Patient to arrive 2 hours before section - NPO (nothing by mouth) for 8 hours prior to section - Follow-up visits to be weekly until section - Next appointment scheduled for one week 1. Progress Reviewed gestational age (35 weeks 4 days), growth, and heart rate (150-151 bpm, normal). Planned frequent visits (weekly until scheduled section on August 11). 2. Instructed patient to monitor movements and report decreases immediately. 3. Testing Counseled on routine third-trimester labs per guidelines (GBS culture performed today). Discussed potential need for ultrasound or monitoring based on risk factors. 4. Preeclampsia Precaution Educated on preeclampsia signs: severe headache, vision changes, right upper quadrant pain, sudden swelling. Advised urgent reporting of symptoms and discussed blood pressure monitoring if high risk. 5. Labor Precautions Reviewed labor signs: regular contractions, pelvic pressure, back pain, bleeding, or fluid leakage. Instructed to seek immediate care for these symptoms. 6. Lifestyle and Delivery Preparation Reinforced vitamins, nutrition, and safe activity. Discussed plan (scheduled repeat section), pain management, and . Advised on labor preparation (arrive 2 hours before surgery, NPO for 8 hours prior) and expectations. 7. Psychosocial Support Assessed emotional well-being and offered resources for mental health or parenting support.
[2025-07-18 10:10] VITALS: BP 118/78; PULSE 93; RESP 18; TEMP 36.2; O2SAT 97; BMI 35.5
== END 2025-07-18 10:21 | disposition home or self-care (01) ==
LOC: HODSOBC 10:01
PROVIDERS: Supervising Provider Obstetrics & Gynecology; Visit Provider Obstetrics & Gynecology
DX: O09.293 Supervision of pregnancy with other poor reproductive or obstetric history, third trimester (principal); O34.219 Maternal care for unspecified type scar from previous cesarean delivery; Z3A.35 35 weeks gestation of pregnancy; Z36.85 Encounter for antenatal screening for Streptococcus B
CPT/HCPCS: 99214; G0463

== ENCOUNTER 2025-07-28 09:30 | Outpatient (AMB) | payer MEDICAID, SELFPAY ==
[2025-07-28 13:43] VITALS: BP 126/83; PULSE 91; RESP 18; TEMP 36.6; O2SAT 95; BMI 36.2
--- NOTE | 2025-07-28 13:43 | OBCLNT_ITS ---
Vital Signs 07/28/25 13:43 Height 1.63 m Height Method Stated Weight 96.275 kg Weight Measurement Method Standing Scale BMI 36.2 BP 126/83 Blood Pressure Source Automatic Cuff Blood Pressure Location Left Upper Arm Position Sitting Respiration 18 Pulse 91 Pulse Source Monitor Temp 97.9 F Temp Source Oral Pulse Oximetry (%) 95 Oxygen Delivery Method Room Air Allergies/Home Meds Allergies & Medications Allergies No Known Allergies Allergy (Verified 07/28/25 13:44) Medication Reconciliation vit no.95-ferrous fumarate 28 mg-folic acid 800 mcg tablet () 1 tab PO QDAY 06/11/23 [History Confirmed 07/28/25] ferrous sulfate 325 mg (65 mg iron) tablet 325 mg PO BID #60 tabs 07/06/25 [Rx Confirmed 07/28/25] Intake Visit Data Collection New Patient or Established: Established Patient (seen at [facility] within 3 years) Reason for Visit:: CARE/ PATIENT REQUESTING PELVIC CHECK Seen by Clinical Staff ONLY (RN/MA): No Architectural Administrative Assistant Required: No Do You Feel Safe at Home: Yes Authorities Contacted: N/A PCP or OBGYN visit in last 3 months: Yes Hx Now: Yes Are you currently on any form of Control: No Pain Present Currently: No Pain Scale Used: Clark-Anaya/Numerical Pain scale:: 0 Smoking Status Smoking Status: Never smoker Immunizations Flu Vaccine in the Last 12 Months: Yes Flu Vaccine Exclusion Criteria: Already Received Questionnaires Covid-19 Vaccine Questionnaire Has patient been vacinated for Covid-19 Have you been vacinated for Covid-19: Yes PHQ-9 PHQ-2 Over the last 2 weeks, how often have you been bothered by any of the following problems? 1. Little interest or pleasure in doing things: not at all 2. Feeling down, depressed, or hopeless: not at all Total score: 0 PHQ-9 3. Trouble falling or staying asleep, or sleeping too much: Not at all 4. Feeling tired or having little energy: Not at all 5. Poor appetite or overeating: Not at all 6. Feeling bad about yourself - or that you are a failure or have let yourself or your family down: Not at all 7. Trouble concentrating on things, such as reading the newspaper or watching television: Not at all 8. Moving or speaking so slowly that other people could have noticed? - Or the opposite - being so fidgety or restless that you have been moving around a lot more than usual: not at all 9. Thoughts that you would be better off or of hurting yourself in some way: Not at all Total score: 0 Source: Developed by Drs. Jun Manjarrez, Jeanne Heller, Андрей Emanuel and colleagues, with an educational wale from [employer]. 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 Last. October 12, 2024. Denies bleeding or cramping. Reports sure dates. Menses are every month x 5 days. Patient is a previous section x 1 for distress. Reports slight nausea. Ultrasound showed gestational sac but no pole. heart tones were not heard. hCG x 2. And transvaginal OB ultrasound was ordered SAB precautions and discussed with patient. 01/09/25 -?-?-?-?-?-?-?-?-?-?-?-?- 8w 3d 79.549 kg 123/74 123/74 Francisca Cruz, G2P 1, at approximately 10 weeks gestation, presents for review of initial labs and management of - related symptoms. No CTX/LOF/VB. No DOE/VS, Epig/RUQ pain. Reports nausea when not eating; no vomit ing. Increased appetite noted. Prior section history. Labs: Hemoglobin 11.6 g/dL Hematocrit 35.1% Blood group O-positive Serum beta-HCG 30,755 mIU/mL Antibody screen negative Urine dipstick positive for nitrites Ultrasound: Confirmed intrauterine pregn nathan Assessment & Plan: Francisca Cruz is a at approximatel y 10w0d gestation presenting for follow-up with early symptoms and positive UTI screening. 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 sono 12/27: 6w4. Change due date to 08/18/25. NIPT and carrier screen today, refill PNV, sab precaution. increase fluid. RTC 4 week OBC, mfm referal was made 02/20/25 -?-?-?-?-?-?-?-?-?-?-?-?- 14w 3d 81.42 kg 122/76 absent unknown 15 135 active no sab complaints, light FM. compliant with PNV dis cuss wrong dates. CEDD: 08/18/25. discuss NIPT and carrier scree,AFP NV, patient will call [facility] for appointment. sab precaution discuss wrong dates. CEDD: 1 10/19/24. discuss NIPT and carrier scree,AFP NV, patient will call [facility] for appointment. sab precaution. draw OB panel nv 03/22/25 -?-?-?-?-?-?-?-?-?-?-?-?- 18w 5d 83.688 kg 120/72 occasional unknown 18 145 active For repeat c/s. fainted at work. occ cramps. improved at rest. 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 AFP, MFM 04/10, discuss sab precaution, increase fluid,rest and increased protein. rtc 4 week obc 04/19/25 -?-?-?-?-?-?-?-?-?-?-?-?- 22w 5d 87.997 kg 117/76 absent unknown 22 145 active fetus active,no PTL complaints, needs refill on PNV, denies bleeding,leaking,uc f/u MFM in 4 week. 3rd tri lab nv, hydrate, ptle precaution, refer to OB at 28 week, previous c/s. refill PNV 05/22/25 -?-?-?-?-?-?-?-?-?-?-?-?- 27w 3d 90.889 kg 124/76 absent unknown 27 130 active No OB complaints. Reports movement. Patient has a follow-up ultrasound in June. Denies leaking or bleeding or contractions Third trimester labs with OB panel today. Keep appointment with maternal- medicine for follow-up ultrasound. And schedule with OB in 3 weeks for repeat 06/12/25 -?-?-?-?-?-?-?-?-?-?-?-?- 30w 3d 93.497 kg 122/77 absent cephalic 31 165 active - Patient reports no contractions or problems with the . - She describes new onset of vaginal sym ptoms: - Increased vaginal discharge - Discharge described as cottage iraj se-like - Patient suspects a yeast infection b ased on her symptoms - No prior history of yeast infections - Denies urinary symptoms (frequency, urgency) - Patient expresses concern about these new symptoms, as she did not experience them in her previous . - Schedule for August 11 at 7:30 AM (39 weeks gestation) - Treat presumed yeast infection - Continue care with Torri ([facility]) until fi nal pre-operative visit - Final visit with Dr. Fleming before C-se ction - Check lab results when available (GBS pending) 06/23/25 -?-?-?-?-?-?-?-?-?-?-?-?- 32w 0d 92.703 kg 115/76 occasional cephalic 32 156 active complaints of back ache, pressure. 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 RTC 8 wk pp after repeat c/s. discuss ptl precaution. fkc bid. rtc 2 week obc disability starting 06/22/25. RTC 8 wk pp after repeat c/s. discuss ptl precaution. fkc bid. rtc 2 week obc. f/u mfm 1 week 07/06/25 -?-?-?-?-?-?-?-?-?-?-?-?- 33w 6d 93.1 kg 112/75 occasional breech 33 146 active Continued complaints of backache. Reports movement. Denies leaking or bleeding. Occasional contraction. Patient started her disability June 22. Discussed kick count and labor Precautions and labor precautions. Patient will be scheduled with OB for previous and repeat 07/18/25 -?-?-?-?-?-?-?-?-?-?-?-?- 35w 4d 94.347 kg 118/78 occasional cephalic 36 155 active - She reports the baby is active with no contractions or problems. - She denies any current concerns or com plications. - Patient has a scheduled repeat section planned for - GBS culture performed today at 35 weeks 4 days gestation - Scheduled repeat section on N - Patient to arrive 2 hours before vashti julio section - NPO (nothing by mouth) for 8 hours romy or to section - Follow-up visits to be weekly until ce sarean section - Next appointment scheduled for one rajwinder leigh 07/28/25 -?-?-?-?-?-?-?-?-?-?-?-?- 37w 0d 96.275 kg 126/83 occasional cephalic 38 150 active - She reports no contractions and no current issues. - She wanted to be checked during this v isit. - She denies having any cervical examina tions during this current prior to today. - She is expecting a girl and has a sche duled on the at 7:30 AM on a . - She reports being prepared for the bab y's arrival with car seat and other necessary items, though has not yet assembled the crib or set up other baby items. - Scheduled gaurava rehong section on August 11 at 7:30 AM - Monitor for contractions - if contract ions occur every 5 minutes, present to 4th floor labor and delivery immediately - Follow-up appointment in one week (sal hung visit) - Maintain adequate hydration - urine sh ould be clear without color - Present to labor and delivery for any concerns regarding contractions due to risk of uterine scar dehiscence CAMILLE Calculator Estimated Delivery Date Method Current WG Current Estimate 08/18/25 Ultrasound #1 37w 0d Other Estimates 07/19/25 LMP (Certain) 41w 2d 08/18/25 Ultrasound #2 37w 0d 08/18/25 Manual 37w 0d final camille, 12/27:6w4, camille 08/18/25 Notes Visit Date: 07/06/25 Last Updated by: Torri Monson CNM 06/09: A1c: 5.1, 1 hr gtt:wnl Visit Date: 06/23/25 Last Updated by: Torri Monson CNM 1 hr gtt: 99 Visit Date: 03/22/25 Last Updated by: Torri Monson CNM OB panel: O+,abs-, rpr;;nr, rub imm. NIPT-/girl, sma and CF- Visit Date: 02/20/25 Last Updated by: Torri Monson CNM 24 yo . prev c/s x1. wrong dates. 12/27/24 sono: 6w4. EDC: 08/18/25. pap wnl, NIPT and SMA- Office Procedures OBC Clinic LOC & Office Proc's Nursing/Assessment Patient Status: Established Patient OB Clinic Nursing Assessment: Medication Reconciliation, Update PMH in EMR and Vital Signs OB Clinic Coordination of Care: Complex Care and Chronic Disease 1-5, Consent,records obtained, informed consent, Education Simp Pt/Fam, 1 Ins Authorization, Lab and Imaging orders, Results/Orders obtained and Staff clarify orders Special Needs: Heart tones Miscellaneous Interventions: Pelvic no cultures Established Patient Charge Established Patient Point Assignment: 160 Established Patient Point Charge: EP Level 5 (160-above) Assessment & Plan Diagnosis / Problem List (1) , high-risk, history of previous obstetrical problem: Status: Acute Qualifiers: Trimester: third trimester Qualified Code(s): O09.293 - Supervision of with other poor reproductive or obstetric history, third trimester (2) Encounter for supervision of high risk in third trimester, antepartum: Status: Acute (3) Maternal care for low transverse scar from previous delivery: Status: Acute Plan Problem List - with history of delivery - Cervical dilation (1 centimeter) Assessment Patient is at 37 weeks gestation with scheduled section in 2 weeks on August 11 at 7:30 AM. heart rate is normal at 139-140 bpm. Cervical examination reveals 1 cm dilation. Group B Streptococcus culture is negative. Patient reports no contractions or other concerns. This is a repeat section case with history of previous delivery. Plan - Scheduled section on August 11 at 7:30 AM - Monitor for contractions - if contractions occur every 5 minutes, present to 4th floor labor and delivery immediately - Follow-up appointment in one week (final visit) - Maintain adequate hydration - urine should be clear without color - Present to labor and delivery for any concerns regarding contractions due to risk of uterine scar dehiscence 1. Progress Reviewed gestational age, growth, and heart rate (139-140 bpm, normal). Patient scheduled for on August 11. Planned frequent visits with one more appointment scheduled for next week as final visit before delivery. 2. Instructed patient to monitor movements and report decreases immediately. 3. Testing Culture swap reported as negative. Discussed potential need for ultrasound or monitoring based on risk factors. 4. Preeclampsia Precaution Educated on preeclampsia signs: severe headache, vision changes, right upper quadrant pain, sudden swelling. Advised urgent reporting of symptoms and discussed blood pressure monitoring if high risk. 5. Labor Precautions Reviewed labor signs including regular contractions (if every 5 minutes, come to hospital immediately). Cervical exam performed showing 1 cm dilation. Emphasized importance of monitoring contractions and seeking immediate care, especially given planned to prevent scar dehiscence. Instructed to come to 4th floor for evaluation when in doubt. 6. Lifestyle and Delivery Preparation Advised to stay hydrated with clear urine as indicator of adequate hydration. Discussed delivery preparation with scheduled for at 7:30. Patient confirmed readiness with car seat and baby items available but not yet assembled. 7. Psychosocial Support Assessed emotional well-being and offered resources for mental health or parenting support.
== END 2025-07-28 14:06 | disposition home or self-care (01) ==
LOC: HODSOBC 09:30
PROVIDERS: Supervising Provider Obstetrics & Gynecology; Visit Provider Obstetrics & Gynecology
DX: O09.293 Supervision of pregnancy with other poor reproductive or obstetric history, third trimester (principal); O34.211 Maternal care for low transverse scar from previous cesarean delivery; Z3A.37 37 weeks gestation of pregnancy
CPT/HCPCS: 99215; G0463

== ENCOUNTER 2025-08-01 10:30 | Outpatient (AMB) | payer MEDICAID, SELFPAY ==
[2025-08-01 10:49] VITALS: BP 121/76; PULSE 86; RESP 16; TEMP 36.3; O2SAT 97; BMI 35.9
--- NOTE | 2025-08-01 10:49 | OBCLNT_ITS ---
Vital Signs 08/01/25 10:49 Height 1.63 m Height Method Stated Weight 95.368 kg Weight Measurement Method Standing Scale BMI 35.9 BP 121/76 Blood Pressure Source Automatic Cuff Blood Pressure Location Left Upper Arm Position Sitting Respiration 16 Pulse 86 Pulse Source Monitor Temp 97.4 F Temp Source Oral Pulse Oximetry (%) 97 Oxygen Delivery Method Room Air Allergies/Home Meds Allergies & Medications Allergies No Known Allergies Allergy (Verified 08/01/25 10:50) Medication Reconciliation vit no.95-ferrous fumarate 28 mg-folic acid 800 mcg tablet () 1 tab PO QDAY 06/11/23 [History Confirmed 08/01/25] ferrous sulfate 325 mg (65 mg iron) tablet 325 mg PO BID #60 tabs 07/06/25 [Rx Confirmed 08/01/25] Immunizations Immunizations Flu Vaccine in the Last 12 Months: No Flu Vaccine Exclusion Criteria: Refused by Patient Care OB Visit Log OB Flowsheet Initial Weight: Not Recorded Date -?-?-?-?-?--?-?-?-?-?-?-?- EGA Weight BP Alb Glu CTX Pres Fundal ht FHR Mov Dilation Station Effacement Hx Notes Visit Note 12/26/24 -?-?-?-?-?-?-?-?-?-?-?-?- 6w 3d 78.925 kg 113/68 absent 10 23-year-old 2 para 1 for OB. Last. October 12, 2024. Denies bleeding or cramping. Reports sure dates. Menses are every month x 5 days. Patient is a previous section x 1 for distress. Reports slight nausea. Ultrasound showed gestational sac but no pole. heart tones were not heard. hCG x 2. And transvaginal OB ultrasound was ordered SAB precautions and discussed with patient. 01/09/25 -?-?-?-?-?-?-?-?-?-?-?-?- 8w 3d 79.549 kg 123/74 123/74 Francisca Cruz, G2P 1, at approximately 10 weeks gestation, presents for review of initial labs and management of - related symptoms. No CTX/LOF/VB. No DOE/VS, Epig/RUQ pain. Reports nausea when not eating; no vomit ing. Increased appetite noted. Prior section history. Labs: Hemoglobin 11.6 g/dL Hematocrit 35.1% Blood group O-positive Serum beta-HCG 30,755 mIU/mL Antibody screen negative Urine dipstick positive for nitrites Ultrasound: Confirmed intrauterine pregn nathan Assessment & Plan: Francisca Cruz is a at approximatel y 10w0d gestation presenting for follow-up with early symptoms and positive UTI screening. 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 sono 12/27: 6w4. Change due date to 08/18/25. NIPT and carrier screen today, refill PNV, sab precaution. increase fluid. RTC 4 week OBC, mfm referal was made 02/20/25 -?-?-?-?-?-?-?-?-?-?-?-?- 14w 3d 81.42 kg 122/76 absent unknown 15 135 active no sab complaints, light FM. compliant with PNV dis cuss wrong dates. CEDD: 08/18/25. discuss NIPT and carrier scree,AFP NV, patient will call [facility] for appointment. sab precaution discuss wrong dates. CEDD: 1 10/19/24. discuss NIPT and carrier scree,AFP NV, patient will call [facility] for appointment. sab precaution. draw OB panel nv 03/22/25 -?-?-?-?-?-?-?-?-?-?-?-?- 18w 5d 83.688 kg 120/72 occasional unknown 18 145 active For repeat c/s. fainted at work. occ cramps. improved at rest. 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 AFP, MFM 04/10, discuss sab precaution, increase fluid,rest and increased protein. rtc 4 week obc 04/19/25 -?-?-?-?-?-?-?-?-?-?-?-?- 22w 5d 87.997 kg 117/76 absent unknown 22 145 active fetus active,no PTL complaints, needs refill on PNV, denies bleeding,leaking,uc f/u MFM in 4 week. 3rd tri lab nv, hydrate, ptle precaution, refer to OB at 28 week, previous c/s. refill PNV 05/22/25 -?-?-?-?-?-?-?-?-?-?-?-?- 27w 3d 90.889 kg 124/76 absent unknown 27 130 active No OB complaints. Reports movement. Patient has a follow-up ultrasound in June. Denies leaking or bleeding or contractions Third trimester labs with OB panel today. Keep appointment with maternal- medicine for follow-up ultrasound. And schedule with OB in 3 weeks for repeat 06/12/25 -?-?-?-?-?-?-?-?-?-?-?-?- 30w 3d 93.497 kg 122/77 absent cephalic 31 165 active - Patient reports no contractions or problems with the . - She describes new onset of vaginal sym ptoms: - Increased vaginal discharge - Discharge described as cottage iraj se-like - Patient suspects a yeast infection b ased on her symptoms - No prior history of yeast infections - Denies urinary symptoms (frequency, urgency) - Patient expresses concern about these new symptoms, as she did not experience them in her previous . - Schedule for August 11 at 7:30 AM (39 weeks gestation) - Treat presumed yeast infection - Continue care with Torri (FREDDY) until fi nal pre-operative visit - Final visit with Dr. Fleming before C-se ction - Check lab results when available (GBS pending) 06/23/25 -?-?-?-?-?-?-?-?-?-?-?-?- 32w 0d 92.703 kg 115/76 occasional cephalic 32 156 active complaints of back ache, pressure. 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 RTC 8 wk pp after repeat c/s. discuss ptl precaution. fkc bid. rtc 2 week obc disability starting 06/22/25. RTC 8 wk pp after repeat c/s. discuss ptl precaution. fkc bid. rtc 2 week obc. f/u mfm 1 week 07/06/25 -?-?-?-?-?-?-?-?-?-?-?-?- 33w 6d 93.1 kg 112/75 occasional breech 33 146 active Continued complaints of backache. Reports movement. Denies leaking or bleeding. Occasional contraction. Patient started her disability June 22. Discussed kick count and labor Precautions and labor precautions. Patient will be scheduled with OB for previous and repeat 07/18/25 -?-?-?-?-?-?-?-?-?-?-?-?- 35w 4d 94.347 kg 118/78 occasional cephalic 36 155 active - She reports the baby is active with no contractions or problems. - She denies any current concerns or com plications. - Patient has a scheduled repeat section planned for - GBS culture performed today at 35 weeks 4 days gestation - Scheduled repeat section on N - Patient to arrive 2 hours before vashti julio section - NPO (nothing by mouth) for 8 hours romy or to section - Follow-up visits to be weekly until ce sarean section - Next appointment scheduled for one rajwinder leigh 07/28/25 -?-?-?-?-?-?-?-?-?-?-?-?- 37w 0d 96.275 kg 126/83 occasional cephalic 38 150 active - She reports no contractions and no current issues. - She wanted to be checked during this v isit. - She denies having any cervical examina tions during this current prior to today. - She is expecting a girl and has a sche duled on the at 7:30 AM on a . - She reports being prepared for the y's arrival with car seat and other necessary items, though has not yet assembled the crib or set up other baby items. - Scheduled cesa rean section on August 11 at 7:30 AM - Monitor for contractions - if contract ions occur every 5 minutes, present to 4th floor labor and delivery immediately - Follow-up appointment in one week (sal hung visit) - Maintain adequate hydration - urine sh ould be clear without color - Present to labor and delivery for any concerns regarding contractions due to risk of uterine scar dehiscence 08/01/25 -?-?-?-?-?-?-?-?-?-?-?-?- 37w 4d 95.368 kg 121/76 occasional cephalic 39 145 active - Francisca Cruz is here for her final appointment before scheduled section on August 11. - She reports the baby is active with no contractions or other issues. - She denies any current concerns or complications. - Scheduled section on August 11 at 7:30 AM - Patient to check in at 5:30 AM on day of surgery - NPO after 10 PM the night before surge ry - Pre-operative preparation will include shaving, Bradley catheter placement, and laboratory work - Anticipated discharge on Thursday mornin g after breakfast JUDY Calculator Estimated Delivery Date Method Current WG Current Estimate 08/18/25 Ultrasound #1 37w 4d Other Estimates 07/19/25 LMP (Certain) 41w 6d 08/18/25 Ultrasound #2 37w 4d 08/18/25 Manual 37w 4d final judy, 12/27:6w4, judy 08/18/25 Notes Visit Date: 07/06/25 Last Updated by: Torri Monson CNM 06/09: A1c: 5.1, 1 hr gtt:wnl Visit Date: 06/23/25 Last Updated by: Torri Monson CNM 1 hr gtt: 99 Visit Date: 03/22/25 Last Updated by: Torri Monson CNM OB panel: O+,abs-, rpr;;nr, rub imm. NIPT-/girl, sma and CF- Visit Date: 02/20/25 Last Updated by: Torri Monson CNM 24 yo . prev c/s x1. wrong dates. 12/27/24 sono: 6w4. EDC: 08/18/25. pap wnl, NIPT and SMA- Office Procedures OBC Clinic LOC & Office Proc's Nursing/Assessment Patient Status: Established Patient OB Clinic Nursing Assessment: Medication Reconciliation, Update PMH in EMR and Vital Signs OB Clinic Coordination of Care: Complex Care and Chronic Disease 1-5, Consent,records obtained, informed consent, Education Simp Pt/Fam, 1 Ins Authorization, Lab and Imaging orders, Results/Orders obtained and Staff clarify orders Special Needs: Heart tones Established Patient Charge Established Patient Point Assignment: 150 Established Patient Point Charge: EP Level 4 (120-155) Assessment & Plan Diagnosis / Problem List (1) , high-risk, history of previous obstetrical problem: Status: Acute Qualifiers: Trimester: third trimester Qualified Code(s): O09.293 - Supervision of with other poor reproductive or obstetric history, third trimester (2) Encounter for supervision of high risk in third trimester, antepartum: Status: Acute Plan Plan - Scheduled section on August 11 at 7:30 AM - Patient to check in at 5:30 AM on day of surgery - NPO after 10 PM the night before surgery - Pre-operative preparation will include shaving, Bradley catheter placement, and laboratory work - Anticipated discharge on Thursday morning after breakfast 1. Progress Reviewed gestational age, growth, and heart rate. heart rate noted as 135 bpm, which is normal. Patient reports baby is active with no contractions or issues. Planned scheduled for the at 7:30 AM. 2. Instructed patient to monitor movements and report decreases immediately. 3. Testing Counseled on routine third-trimester labs per guidelines. Discussed potential need for ultrasound or monitoring based on risk factors. 4. Preeclampsia Precaution Educated on preeclampsia signs: severe headache, vision changes, right upper quadrant pain, sudden swelling. Advised urgent reporting of symptoms and discussed blood pressure monitoring if high risk. 5. Labor Precautions Reviewed labor signs: regular contractions, pelvic pressure, back pain, bleeding, or fluid leakage. Instructed to seek immediate care for these symptoms. 6. Lifestyle and Delivery Preparation Reinforced vitamins, nutrition, and safe activity. Discussed plan, pain management, and . Provided detailed pre-operative instructions: check-in at 5:30 AM, NPO after 10 PM the night before surgery. Discussed hospital procedures including shaving, Bradley catheter placement, and lab work. Planned discharge for Thursday morning after breakfast. 7. Psychosocial Support Assessed emotional well-being and offered resources for mental health or parenting support.
== END 2025-08-01 10:56 | disposition home or self-care (01) ==
LOC: HODSOBC 10:30
PROVIDERS: Supervising Provider Obstetrics & Gynecology; Visit Provider Obstetrics & Gynecology
DX: O09.293 Supervision of pregnancy with other poor reproductive or obstetric history, third trimester (principal); Z3A.37 37 weeks gestation of pregnancy; O34.219 Maternal care for unspecified type scar from previous cesarean delivery; Z87.59 Personal history of other complications of pregnancy, childbirth and the puerperium; Z28.21 Immunization not carried out because of patient refusal
CPT/HCPCS: 99214; G0463

== ENCOUNTER 2025-08-11 05:08 | Inpatient (IN) | payer MEDICAID, SELFPAY ==
[2025-08-11] VITALS (46 sets, daily range): BP systolic 96–131; BP diastolic 48–81; PULSE 73–108; RESP 12–23; TEMP 36.5–37.2; O2SAT 95–100; BMI 36.6
[2025-08-11 06:14] LABS: Basophils # (Auto) 0.1 Thou/mm3 (0.0-0.2); Basophils % (Auto) 1 % (0-2.5); Eosinophils # (Auto) 0.1 Thou/mm3 (0.0-0.5); Eosinophils % (Auto) 1 % (0-10); Hematocrit 34.4 % (36.0-46.0); Hemoglobin 10.9 g/dL (12.0-16.0); Immature Granulocytes Auto 0.07 Thou/mm3 (0.00-0.00); Lymphocytes # (Auto) 1.6 Thou/mm3 (1.0-4.8); Lymphocytes % (Auto) 25 % (10-50); Mean Corpuscular HGB Conc 31.7 g/dl (31.0-37.0); Mean Corpuscular Hemoglobin 24.7 pg (25.0-35.0); Mean Corpuscular Volume 78 fL (80-100); Monocytes # (Auto) 0.6 Thou/mm3 (0.0-0.8); Monocytes % (Auto) 9 % (0-12); Neutrophils # (Auto) 4.2 Thou/mm3 (1.8-7.7); Neutrophils % (Auto) 63 % (37-80); Nucleated Red Blood Cell # 0.00 Thou/mm3 (0.00-0.00); Nucleated Red Blood Cell % 0 /100 WBC (0); Platelet Count 241 Thou/mm3 (140-440); RDW Standard Deviation 40.0 fL (36.4-46.3); Red Blood Count 4.41 Miln/mm3 (4.00-5.20); White Blood Count 6.6 Thou/mm3 (3.6-11.0)
[2025-08-11 06:56] LABS: Syphilis Nonreactive (Nonreactive)
[2025-08-11] MEDS: RINGERS LACTATED 1000 ML 1,000 ML 100 ML IV (07:12)
--- NOTE | 2025-08-11 07:38 | PD.LDHP ---
Documentation for date of: 08/11/25 OB Labor/Induct. HPI History of Present Illness Chief complaint: Schedule repeat : 2 Para: 1 Living children: 1 History of sections: Yes (2022) JUDY: 08/18/25 History of present illness: 24-year-old 2 para 1-0-0-1 at 39 weeks and 0 days presents for scheduled repeat low-transverse . Patient denies any contractions or leakage of fluid or vaginal bleeding and reports adequate movements. She received care at the [facility]. All her records are available in the chart. Labs Labs: Positive: Rubella Titre, Negative: RPR, Hepatitis B, HIV, Chlamydia, Gonorrhea and Group Beta Strep and Unknown: Herpes Type 1, Herpes Type 2 and Covid-19 Review of Systems Review of Systems Systems Reviewed: All systems reviewed, normal except as documented Past Medical History Surgical History SURGICAL: Positive Section (2022) Meds Home Medications and Allergies Home Medications ?Medication ?Instructions ?Recorded ?Confirmed ?Type vit no.95-ferrous 1 tab PO QDAY 06/11/23 08/01/25 History fumarate 28 mg-folic acid 800 mcg tablet () Allergies Allergy/AdvReac Type Severity Reaction Status Date / Time No Known Allergies Allergy Verified 08/01/25 10:50 OB Exam Physical Exam Vital signs: Temp Pulse Resp BP Pulse Ox O2 Del Method 97.9 F 106 H 16 131/81 H 97 Room Air 08/11/25 05:10 08/11/25 05:22 08/11/25 05:10 08/11/25 05:22 08/11/25 07:34 08/11/25 05:10 Constitutional Constitutional: no acute distress Routine HEENT Exam Head: Present normocephalic and atraumatic Eye: Present EOMI and PERRL ENT: Present mucous membranes moist Routine Neck Exam Neck: Present supple and trachea midline Routine Cardiovascular Exam Cardiovascular: Present RRR Routine Abdominal Exam Abdominal: Present soft and normoactive bowel sounds Detailed Labor and Delivery Exam Dilation (cm): 0 Baseline heart rate: 145 monitor accelerations: 15x15 monitor decelerations: None alf variability: Average (6-10) Routine Extremities Exam Extremities: Present full ROM Routine Skin Exam Skin: Present intact, dry and warm Routine Neurological Exam Neurological: Present alert, oriented X3 and CN II-XII intact Routine Psychiatric Exam Psychiatric: Present normal affect and normal thought process OB Results Labs 08/11/25 05:45 Labs: Short CBC 08/11/25 Range/Units 05:45 WBC 6.6 (3.6-11.0) Thou/mm3 Hgb 10.9 L (12.0-16.0) g/dL Hct 34.4 L (36.0-46.0) % Plt Count 241 (140-440) Thou/mm3 OB Assessment & Plan Assessment and Plan (1) Maternal care for low transverse scar from previous delivery: Status: Acute Assessment and plan: Admit to inpatient status for repeat low transverse IV access, CBC, type and screen, LR at 125, RPR, COVID-19 test GBS negative Ancef 2 g prior to surgery start Bradley catheter to drainage SCDs for DVT prophylaxis Anesthesia to preop for spinal anesthesia Scheduled for surgery.
[2025-08-11] MEDS: FAMOTIDINE INJ 10 MG/ML VIAL 2 ML 20 MG IV (07:41)
[2025-08-11] MEDS: METOCLOPRAMIDE INJ 5 MG/ML VIAL 2 ML 10 MG IVP (07:41)
[2025-08-11] MEDS: ceFAZolin/D5W 2 GM IV 2 GM/100 ML BAG IV (07:42)
--- NOTE | 2025-08-11 08:55 | PD.GYNPROC ---
Operative Note - HR BUSINESS PARTNER Procedure Date of procedure: 08/11/25 Procedure Performed: Repeat low-transverse section Indication: 24-year-old 2 para 1 at 39 weeks and 0 days with previous Anesthesia type: Spinal Procedure description: Informed consent was obtained. The patient was brought to the operating room and identified with two patient identifiers. She was placed in the supine position, and spinal anesthesia was administered. After confirming adequate anesthesia, the abdomen and perineum were prepped and draped in the usual sterile fashion. A Bradley catheter was inserted for continuous bladder drainage. A low transverse (Pfannenstiel) skin incision was made using a scalpel and carried through subcutaneous tissue to the rectus fascia. The previous scar was identified and excised in its entirety. The fascia was incised transversely and dissected off the rectus muscles both superiorly and inferiorly. The rectus bellies were in the midline, and the peritoneum was entered bluntly with the surgeon?s finger. The peritoneal opening was extended to allow adequate exposure. An Hernandez O-ring retractor was placed for optimal visualization. Upon entering the abdominal cavity, extensive adhesions were noted between the uterus, omentum, and surrounding peritoneal structures. These were carefully lysed using sharp and blunt dissection. Significant oozing was noted from the adhesiolysis sites, which required meticulous hemostasis with electrocautery and irrigation. The lower uterine segment was palpated, and the bladder flap was reflected inferiorly. A low transverse uterine incision (Madeline Laureano) was made with a scalpel and extended bluntly. The amniotic membranes were ruptured, and clear fluid was released. The fetus was in vertex presentation. A Mityvac vacuum device was applied to the head. Vacuum-assisted delivery was accomplished without any pop-offs. A single loop of nuchal cord was noted and reduced. The shoulders and body were delivered smoothly with gentle fundal pressure. The umbilical cord was doubly clamped and cut, and the was handed to the awaiting team. Cord gases were obtained. The placenta was delivered with gentle traction on the cord. The uterine cavity was cleared of membranes and clots. The hysterotomy angles were secured with Allis clamps. The uterine incision was closed in two layers using #1 Monocryl: the first layer was a running locked suture to approximate the myometrium, and the second layer imbricated the serosa and myometrium. Hemostasis was confirmed. The Hernandez retractor was removed. Peritoneal edges and rectus muscles were reapproximated. Rectus fascia was closed with running PDS STRATAFIX. The subcutaneous tissue was irrigated with warm saline, and bleeding points were cauterized using Bovie electrocautery. Subcutaneous tissue was approximated with 3-0 Vicryl. The skin was closed using 4-0 Monocryl in a subcuticular fashion. A sterile dressing was applied. The patient was cleaned, undraped, and transferred to the recovery room in stable and awake condition. She tolerated the procedure well. All counts were correct ?2. Estimated blood loss (ml): 650 Complications: none Diagnosis Discharge Diagnosis (1) Encounter for supervision of high risk in third trimester, antepartum: Status: Acute (2) , high-risk, history of previous obstetrical problem: Status: Acute (3) Maternal care for low transverse scar from previous delivery: Status: Acute (4) delivery delivered: Status: Acute Problem List Completed Was Problem List Reviewed/Reconciled?: Yes (2) , high-risk, history of previous obstetrical problem Qualifiers: Trimester: third trimester Qualified Code(s): O09.293 - Supervision of with other poor reproductive or obstetric history, third trimester
--- NOTE | 2025-08-11 09:00 | PD.LDDELS ---
Data ([place]) Data Hx Section: Yes (2022) : 2 Livin Delivery Data ([place]) Labor Data Induction/Augmentation Agent: None ROM date: 08/11/25 ROM time: 08:31 Amniotic membrane rupture type: Artificial Amniotic fluid description: Clear Delivery Data [place] delivery date: 08/11/25 [place] delivery time: 08:32 Placenta delivery date: 08/11/25 Placenta delivery time: 08:33 Delivered by: Lonnie DURAN Delivery nurse: Martha Gaytan RN [place] nurse: Belle Lopez RN Milking System Installer at delivery: No Support person(s) at delivery: FOB Delivery Method Delivery method: Low Transverse Presentation: Vertex Anesthesia Type Anesthesia Type: Spinal Anesthesia type: Spinal Placenta Placenta delivery description: Manual Removal Cord blood sent to lab: Yes cord blood collection: Cord Blood Type Episiotomy Episiotomy description: None Umbilical Cord cord description: 3 Vessels Data ([place]) Data order: 1 [place]'s gender: Female length: 53.34 cm 1 minute: 8 5 minutes: 8 10 minutes: 9
[2025-08-11] MEDS: OXYTOCIN in NS 20 units 20 UNIT/1,000 ML BAG 125 UNIT IV (12:27)
[2025-08-11] MEDS: RINGERS LACTATED 1000 ML 1,000 ML 125 ML IV (21:01)
[2025-08-12 03:48] VITALS: BP 113/72; PULSE 97; RESP 20; TEMP 37.1; O2SAT 98
[2025-08-12] MEDS: IBUPROFEN TAB 400 MG TABLET 800 MG PO ×2 (03:53→18:15)
[2025-08-12] MEDS: DOCUSATE SOD 100 MG CAPSULE PO (08:16)
[2025-08-12 08:20] VITALS: BP 116/75; PULSE 87; RESP 16; TEMP 36.7; O2SAT 98
[2025-08-12 08:32] LABS: Basophils # (Auto) 0.1 Thou/mm3 (0.0-0.2); Basophils % (Auto) 1 % (0-2.5); Eosinophils # (Auto) 0.1 Thou/mm3 (0.0-0.5); Eosinophils % (Auto) 1 % (0-10); Hematocrit 33.2 % (36.0-46.0); Hemoglobin 10.5 g/dL (12.0-16.0); Immature Granulocytes Auto 0.10 Thou/mm3 (0.00-0.00); Lymphocytes # (Auto) 1.7 Thou/mm3 (1.0-4.8); Lymphocytes % (Auto) 17 % (10-50); Mean Corpuscular HGB Conc 31.6 g/dl (31.0-37.0); Mean Corpuscular Hemoglobin 25.3 pg (25.0-35.0); Mean Corpuscular Volume 80 fL (80-100); Monocytes # (Auto) 0.9 Thou/mm3 (0.0-0.8); Monocytes % (Auto) 10 % (0-12); Neutrophils # (Auto) 7.0 Thou/mm3 (1.8-7.7); Neutrophils % (Auto) 71 % (37-80); Nucleated Red Blood Cell # 0.00 Thou/mm3 (0.00-0.00); Nucleated Red Blood Cell % 0 /100 WBC (0); Platelet Count 227 Thou/mm3 (140-440); RDW Standard Deviation 42.1 fL (36.4-46.3); Red Blood Count 4.15 Miln/mm3 (4.00-5.20); White Blood Count 9.9 Thou/mm3 (3.6-11.0)
--- NOTE | 2025-08-12 08:36 | PD.LDPPPRG ---
Subjective Subjective Interval history: Patient is a 24-year-old -0-0-2 postoperative day #1 status post scheduled elective repeat section by Dr. Fleming. The baby delivered 08/11/2025 approximately 9:00 in the morning. Today the patient is resting in bed. Her pain is under good control. She is breast and bottlefeeding. She is voiding, ambulating ,and tolerating a general diet. Exam Vital Signs Temp Pulse Resp BP Pulse Ox O2 Del Method 98.8 F 97 20 113/72 98 Room Air 08/12/25 03:48 08/12/25 03:48 08/12/25 03:48 08/12/25 03:48 08/12/25 03:48 08/12/25 03:48 Narrative Exam Patient is alert and orient x 3. She is pleasant and cooperative. Abdomen soft fundus firm about 2 cm below umbilicus. Dressing is removed and incision is clean dry and intact. Objective Labs 08/11/25 05:45 Labs: Laboratory Results - last 24 hr 08/11/25 05:45 Blood Type O Positive Antibody Screen POSITIVE Antibody Identification Inconclusive Blood Bank Wristband ID Yes Assessment & Plan Problem List (1) Maternal care for low transverse scar from previous delivery: Problem details: Patient is doing well. Encourage ambulation and p.o. pain medications as needed. Work on breast-feeding. Probable discharge tomorrow. Status: Acute (2) delivery delivered: Status: Acute Time Spent With Patient Time: Total time spent is greater than 50% in coordination of care (as documented) at patient's floor/unit and/or counseling patient: Time with patient: less than 15 minutes
[2025-08-12] MEDS: HYDROcodone/APAP 5/325 TABLET 1 TAB PO (13:24)
[2025-08-12] MEDS: SIMETHICONE 80 MG CHEW PO (13:24)
[2025-08-12 15:45] VITALS: BP 123/77; PULSE 104; RESP 17; TEMP 36.8; O2SAT 98
[2025-08-12 19:52] VITALS: BP 119/74; PULSE 92; RESP 18; TEMP 37; O2SAT 100
[2025-08-13 03:40] VITALS: BP 121/73; PULSE 90; RESP 18; TEMP 37.1; O2SAT 98
[2025-08-13] MEDS: HYDROcodone/APAP 5/325 TABLET 1 TAB PO (03:41)
[2025-08-13 07:18] VITALS: BP 112/76; PULSE 86; RESP 16; TEMP 36.8; O2SAT 98
--- NOTE | 2025-08-13 08:27 | PD.LDDS ---
DS: Providers Provider Date of admission: 08/11/25 05:08 Primary care physician: Physician No Primary/Family Admitting Provider: Yossi Fleming MD Attending Provider on Admission: Yossi Fleming MD Consults: 08/11/25 09:40 Referral Routine Comment: Attending Provider on DC: Traci Dillon MD Discharging Provider: Traci Dillon MD DS: Diagnosis Discharge Diagnosis (1) delivery delivered: Status: Acute (2) Maternal care for low transverse scar from previous delivery: Status: Acute Problem List Completed Was Problem List Reviewed/Reconciled?: Yes Summary/Hosp Course Brief History: 24-year-old 2 para 1-0-0-1 at 39 weeks and 0 days presents for scheduled repeat low-transverse . Patient denies any contractions or leakage of fluid or vaginal bleeding and reports adequate movements. She received care at the [facility] clinic. All her records are available in the chart. Peripartum Data Delivery Method: Low Transverse Episiotomy Description: None Procedures: Procedures Operation Date: 08/11/25 07:45 Actual Procedure Side Surgeon p in OB Not Applicable Yossi Fleming MD Time Spent with Patient Time attestation: Total time spent providing and/or coordinating discharge services: Exam Vital Signs Temp Pulse Resp BP Pulse Ox O2 Del Method 98.3 F 86 16 112/76 98 Room Air 08/13/25 07:18 08/13/25 07:18 08/13/25 07:18 08/13/25 07:18 08/13/25 07:18 08/13/25 07:18 Narrative Exam Sub; Patient has no/ complaints Headache no Blurry vision no Chest pain no Palpitations no Shortness of breath no Nausea or vomiting or constipation no Back pain no Dysuria no Dizziness no calf pain no She is voiding spontaneously after catheter removal yes Passing flatus yes Lochia minimal yes alert x3 chest clear CVS RRR NO thyromegaly Uterus is nontender Uterus is firm/ appropriate size Just below the umbilicus Bowel sounds present Abdomen soft no hernias noted/no CVAT Incision CDI No drainage Appropriately tender No calf tenderness Edema mild Discharge Plan Plan Patient Disposition: HOME (Self Care) Patient condition on transfer: Stable Prescriptions/Referrals Prescriptions/Med Rec: New hydrocodone-acetaminophen 5-325 mg tablet 1 tab PO Q6H MDD 4 PRN (Reason: pain) 5 Days Qty: 20 0RF docusate sodium [Stool Softener] 100 mg capsule 100 mg PO QDAY 30 Days Qty: 30 0RF ibuprofen 600 mg tablet 600 mg PO Q6H MDD 4 PRN (Reason: fever or pain) 10 Days Qty: 40 0RF Continued ferrous sulfate 325 mg (65 mg iron) tablet 325 mg PO BID Qty: 60 2RF PNV no.95-ferrous fumarate-FA [] 28 mg iron- 800 mcg Tablet 1 tab PO QDAY Referrals: No Primary/Family,Physician [Primary Care Provider] Patient/Caregiver Discharge Instructions Discharge Activity: activity as tolerated Other Discharge Activity Instructions:: pelvic rest x6 weeks / follow up in clinic/ or her ob in 1 to 2 weeks Education Materials: Expressing Your Milk, Storing Expressed Milk, After a , : Caring for Yourself, C Section Dc, Change Expect Parents Print Language: Maori Activity Restrictions/Additional Instructions: pelvic rest x6 weeks / follow up in clinic/ or her ob in 1 to 2 weeks Stand Alone Forms: Michelle Award Info., Patient Portal Info Letter Discharge Order Discharge Orders: Discharge (Routine); Ordered 08/13/25 Ordered By: Traci Dillon Planned Discharge Date 08/13/25
[2025-08-13] MEDS: DOCUSATE SOD 100 MG CAPSULE PO (09:48)
[2025-08-13] MEDS: IBUPROFEN TAB 400 MG TABLET 800 MG PO (11:04)
== END 2025-08-13 11:35 | disposition home or self-care (01) | DRG 540 ==
LOC: S4SX 05:10 → S4NX 08:07
PROVIDERS: Admitting Provider Obstetrics & Gynecology; Visit Provider Obstetrics & Gynecology
PROC: 10D00Z1 Extraction of Products of Conception, Low, Open Approach (ICD-10-PCS; CPT 59514; principal; 2025-08-11 07:30)
DX: O34.211 Maternal care for low transverse scar from previous cesarean delivery (principal); O69.81X0 Labor and delivery complicated by cord around neck, without compression, not applicable or unspecified; Z37.0 Single live birth; Z3A.39 39 weeks gestation of pregnancy; K66.0 Peritoneal adhesions (postprocedural) (postinfection)
CPT/HCPCS: 36415; 85025; 86780; 86850; 86870; 86900; 86901; A4217; A4314; A4649; J0689; J2590; J2765; J3490; J7120; A9270

== ENCOUNTER 2025-09-12 10:36 | Outpatient (AMB) | payer MEDICAID, SELFPAY ==
[2025-09-12 10:49] VITALS: BP 118/78; PULSE 72; RESP 16; TEMP 36.4; O2SAT 97; BMI 33.0
--- NOTE | 2025-09-12 10:49 | AMBOBPPN_ITS ---
Vital Signs 09/12/25 10:49 Height 1.63 m Height Method Stated Weight 87.203 kg Weight Measurement Method Standing Scale BMI 33.0 BP 118/78 Blood Pressure Source Automatic Cuff Blood Pressure Location Left Upper Arm Position Sitting Respiration 16 Pulse 72 Pulse Source Monitor Temp 97.6 F Temp Source Oral Pulse Oximetry (%) 97 Oxygen Delivery Method Room Air Allergies/Home Meds Allergies & Medications Allergies No Known Allergies Allergy (Verified 09/12/25 10:50) Medication Reconciliation vit no.95-ferrous fumarate 28 mg-folic acid 800 mcg tablet () 1 tab PO QDAY 06/11/23 [History Confirmed 09/12/25] ferrous sulfate 325 mg (65 mg iron) tablet 325 mg PO BID #60 tabs 07/06/25 [Rx Confirmed 09/12/25] Intake Visit Data Collection New Patient or Established: Established Patient [place] [facility] [place] Reason for Visit:: Seen by Clinical Staff ONLY (RN/MA): No Silk Spooler Required: No Do You Feel Safe at Home: Yes Authorities Contacted: N/A PCP or OBGYN visit in last 3 months: Yes Hx Now: No Are you currently on any form of Control: No Pain Present Currently: No Pain Scale Used: Clark-Anaya/Numerical Pain scale:: 0 Smoking Status Smoking Status: Never smoker Immunizations Flu Vaccine in the Last 12 Months: No Flu Vaccine Exclusion Criteria: Refused by Patient 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: Past Medical History Past Medical History: No Hx Neurological Disorders, No Hx Breast Cancer, No Hx Cardiac Disorders, No Hx Hypertension, No Hx Cancer, No Hx Blood Disorders, No Hx Anemia, No Hx Gastrointestinal Disorders, No Hx Renal Disease, No Hx Diabetes Mellitus Type 1 and No Hx Diabetes Mellitus Type 2 Questionnaires Covid-19 Vaccine Questionnaire Has patient been vacinated for Covid-19 Have you been vacinated for Covid-19: Yes Social History Living Situation History Lives With: Family Housing: Apartment Tobacco History Smoking Status: Never smoker Second Hand Smoke Exposure: No Alcohol History Alcohol Intake: Never Substance Use History Substance Use: THC Domestic Abuse History Do You Feel Safe at Home: Yes EPDS - PP Depression Screening [facility] Screen I have been able to laugh and see the funny side of things: (0) As much as I always could I have looked forward with enjoyment to things: (0) As much as I ever did I have blamed myself unnecessarily when things went wrong: (0) No, never I have been anxious or worried for no good reason: (0) No, not at all I have felt scared or panicky for no very good reason: (0) No, not at all Things have been getting on top of me: (0) No, I have been coping as well as ever I have been so unhappy that I have had difficulty sleeping: (0) No, not at all I have felt sad or miserable: (0) No, not at all I have been so unhappy that I have been crying: (0) No, never The thought of harming myself has occurred to me: (0) Never EPDS completed yes Care OB Visit Log OB Flowsheet Initial Weight: Not Recorded Date -?-?-?-?-?-?-?-?-?-?-?-?- EGA Weight BP Alb Glu CTX Pres Fundal ht FHR Mov Dilation Station Effacement Hx Notes Visit Note 12/26/24 -?-?-?-?-?-?-?-?-?-?-?-?- 6w 3d 78.925 kg 113/68 absent 10 23-year-old 2 para 1 for OB. Last. October 12, 2024. Denies bleeding or cramping. Reports sure dates. Menses are every month x 5 days. Patient is a previous section x 1 for distress. Reports slight nausea. Ultrasound showed gestational sac but no pole. heart tones were not heard. hCG x 2. And transvaginal OB ultrasound was ordered SAB precautions and discussed with patient. 01/09/25 -?-?-?-?-?-?-?-?-?-?-?-?- 8w 3d 79.549 kg 123/74 123/74 Francisca Cruz, G2P 1, at approximately 10 weeks gestation, presents for review of initial labs and management of - related symptoms. No CTX/LOF/VB. No DOE/VS, Epig/RUQ pain. Reports nausea when not eating; no vomit ing. Increased appetite noted. Prior section history. Labs: Hemoglobin 11.6 g/dL Hematocrit 35.1% Blood group O-positive Serum beta-HCG 30,755 mIU/mL Antibody screen negative Urine dipstick positive for nitrites Ultrasound: Confirmed intrauterine pregn nathan Assessment & Plan: Francisca Cruz is a at approximatel y 10w0d gestation presenting for follow-up with early symptoms and positive UTI screening. Intrauterine Schedule 12-week ultrasound at [facility] (genetic screening) Schedule 20-week ultrasound to assess C- section scar Ship Erector on diet: encourage high-protein, homemade foods; avoid junk/fried foods Plan delivery at [facility] Follow-up in 2 weeks for office ultrasou nd Urinary tract infection Prescribe empiric antibiotics for UTI Repeat urine dipstick after completing a ntibiotics If persistent, send urine culture 01/23/25 -?-?-?-?-?-?-?-?-?-?-?-?- 10w 3d 78.642 kg 117/75 absent wrong dates. sono 12/27: 6w4. Change due date to 08/18/25. NIPT and carrier screen today, refill PNV, sab precaution. increase fluid. RTC 4 week OBC, [facility] referal was made 02/20/25 -?-?-?-?-?-?-?-?-?-?-?-?- 14w 3d 81.42 kg 122/76 absent unknown 15 135 active no sab complaints, light FM. compliant with PNV dis cuss wrong dates. CEDD: 08/18/25. discuss NIPT and carrier scree,AFP NV, patient will call [facility] for appointment. sab precaution discuss wrong dates. CEDD: 1 10/19/24. discuss NIPT and carrier scree,AFP NV, patient will call [facility] for appointment. sab precaution. draw OB panel nv 03/22/25 -?-?-?-?-?-?-?-?-?-?-?-?- 18w 5d 83.688 kg 120/72 occasional unknown 18 145 active For repeat c/s. fainted at work. occ cramps. improved at rest. 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 [facility] appointment for 04/10 note for light duty,scanned in chart. AFP, M 04/10, discuss sab precaution, increase fluid,rest and increased protein. rtc 4 week obc 04/19/25 -?-?-?-?-?-?-?-?-?-?-?-?- 22w 5d 87.997 kg 117/76 absent unknown 22 145 active fetus active,no PTL complaints, needs refill on PNV, denies bleeding,leaking,uc f/u MFM in 4 week. 3rd tri lab nv, hydrate, ptle precaution, refer to OB at 28 week, previous c/s. refill PNV 05/22/25 -?-?-?-?-?-?-?-?-?-?-?-?- 27w 3d 90.889 kg 124/76 absent unknown 27 130 active No OB complaints. Reports movement. Patient has a follow-up ultrasound in June. Denies leaking or bleeding or contractions Third trimester labs with OB panel today. Keep appointment with maternal- medicine for follow-up ultrasound. And schedule with OB in 3 weeks for repeat 06/12/25 -?-?-?-?-?-?-?-?-?-?-?-?- 30w 3d 93.497 kg 122/77 absent cephalic 31 165 active - Patient reports no contractions or problems with the . - She describes new onset of vaginal sym ptoms: - Increased vaginal discharge - Discharge described as cottage iraj se-like - Patient suspects a yeast infection b ased on her symptoms - No prior history of yeast infections - Denies urinary symptoms (frequency, urgency) - Patient expresses concern about these new symptoms, as she did not experience them in her previous . - Schedule for August 11 at 7:30 AM (39 weeks gestation) - Treat presumed yeast infection - Continue care with Torri (FREDDY) until fi nal pre-operative visit - Final visit with Dr. Fleming before C-se ction - Check lab results when available (GBS pending) 06/23/25 -?-?-?-?-?-?-?-?-?-?-?-?- 32w 0d 92.703 kg 115/76 occasional cephalic 32 156 active complaints of back ache, pressure. 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 RTC 8 wk pp after repeat c/s. discuss ptl precaution. fkc bid. rtc 2 week obc disability starting 06/22/25. RTC 8 wk pp after repeat c/s. discuss ptl precaution. fkc bid. rtc 2 week obc. f/u mfm 1 week 07/06/25 -?-?-?-?-?-?-?-?-?-?-?-?- 33w 6d 93.1 kg 112/75 occasional breech 33 146 active Continued complaints of backache. Reports movement. Denies leaking or bleeding. Occasional contraction. Patient started her disability June 22. Discussed kick count and labor Precautions and labor precautions. Patient will be scheduled with OB for previous and repeat 07/18/25 -?-?-?-?-?-?-?-?-?-?-?-?- 35w 4d 94.347 kg 118/78 occasional cephalic 36 155 active - She reports the baby is active with no contractions or problems. - She denies any current concerns or com plications. - Patient has a scheduled repeat section planned for - GBS culture performed today at 35 weeks 4 days gestation - Scheduled repeat section on - Patient to arrive 2 hours before vashti julio section - NPO (nothing by mouth) for 8 hours romy or to section - Follow-up visits to be weekly until ce sarean section - Next appointment scheduled for one rajwinder leigh 07/28/25 -?-?-?-?-?-?-?-?-?-?-?-?- 37w 0d 96.275 kg 126/83 occasional cephalic 38 150 active - She reports no contractions and no current issues. - She wanted to be checked during this v isit. - She denies having any cervical examina tions during this current prior to today. - She is expecting a girl and has a sche duled on the at 7:30 AM on a . - She reports being prepared for the bab y's arrival with car seat and other necessary items, though has not yet assembled the crib or set up other baby items. - Scheduled cesa rean section on August 11 at 7:30 AM - Monitor for contractions - if contract ions occur every 5 minutes, present to 4th floor labor and delivery immediately - Follow-up appointment in one week (sal hung visit) - Maintain adequate hydration - urine sh ould be clear without color - Present to labor and delivery for any concerns regarding contractions due to risk of uterine scar dehiscence 08/01/25 -?-?-?-?-?-?-?-?-?-?-?-?- 37w 4d 95.368 kg 121/76 occasional cephalic 39 145 active - Francisca Cruz is here for her final appointment before scheduled section on August 11. - She reports the baby is active with no contractions or other issues. - She denies any current concerns or complications. - Scheduled section on August 11 at 7:30 AM - Patient to check in at 5:30 AM on day of surgery - NPO after 10 PM the night before surge ry - Pre-operative preparation will include shaving, Bradley catheter placement, and laboratory work - Anticipated discharge on Thursday mornin g after breakfast JUDY Calculator Estimated Delivery Date Method Current WG Current Estimate 08/18/25 Ultrasound #1 43w 4d Other Estimates 07/19/25 LMP (Certain) 47w 6d 08/18/25 Ultrasound #2 43w 4d 08/18/25 Manual 43w 4d final judy, 12/27:6w4, judy 08/18/25 Notes Visit Date: 07/06/25 Last Updated by: Torri Monson CNM 06/09: A1c: 5.1, 1 hr gtt:wnl Visit Date: 06/23/25 Last Updated by: Torri Monson CNM 1 hr gtt: 99 Visit Date: 03/22/25 Last Updated by: Torri Monson CNM OB panel: O+,abs-, rpr;;nr, rub imm. NIPT-/girl, sma and CF- Visit Date: 02/20/25 Last Updated by: Torri Monson CNM 24 yo . prev c/s x1. wrong dates. 12/27/24 sono: 6w4. EDC: 08/18/25. pap wnl, NIPT and SMA- HPI Interval History: Francisca Cruz presents for her appointment one month following a repeat section performed on August 11, 2025. She reports that both she and her baby are doing well. She is currently bottle-feeding her infant and attempted but was not producing enough milk. She continues to pump breast milk and supplements with formula, giving the baby whatever milk she is able to pump. She expresses concern about control options, noting that she has tried oral contraceptive pills approximately three times in the past but they didn't do good for her and doesn't work well. She declined the mini pill option and prefers to discuss contraceptive alternatives at a future visit. She has a history of repeat section on August 11, 2025, with good healing of incision. The patient has tried control pills approximately 3 times but they didn't work well for her. 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 Exam Narrative Physical exam: - Abdominal: incision has healed well with good appearance. Office Procedures OBC Clinic LOC & Office Proc's Nursing/Assessment Patient Status: Established Patient OB Clinic Nursing Assessment: Medication Reconciliation, Update PMH in EMR and Vital Signs OB Clinic Coordination of Care: Complex Care and Chronic Disease 1-5, Consent,records obtained, informed consent, Education Simp Pt/Fam, 1 Ins Authorization, Lab and Imaging orders, Results/Orders obtained and Staff clarify orders Established Patient Charge Established Patient Point Assignment: 120 Established Patient Point Charge: EP Level 4 (120-155) Assessment & Plan Diagnosis / Problem List (1) delivery delivered: Status: Acute (2) Encounter for routine follow-up: Status: Acute Plan Status Post Section: - One month following repeat section performed on August 11, 2025. - Incision has healed perfectly with good appearance. - Patient is doing well overall with no apparent complications from the surgical delivery. Plan: - Incision site appears well-healed, no further surgical follow-up needed. - No routine follow-up appointments scheduled. - Patient instructed to contact office if any concerns arise. Feeding and : - Patient attempted but experienced insufficient milk production. - Currently bottle-feeding with formula while continuing to pump breast milk and supplementing with whatever milk is produced. Plan: - Continue current feeding regimen of pumping breast milk and supplementing with formula. - Encouraged to continue pumping as it helps maintain milk production. - Continue taking vitamins. Contraceptive Counseling: - Patient inquired about control options but expressed concerns about oral contraceptives based on previous unsuccessful experiences with control pills tried approximately 3 times in the past. - Patient is currently , which limits contraceptive options. - Mini pill (progestin-only) is available option during but patient declined prescription at this time. Plan: - Patient declined mini pill prescription. - Scheduled return visit in a couple of months to review all contraceptive options and make informed decision. - Patient can call for prescription if desires control before scheduled visit.
== END 2025-09-12 10:55 | disposition home or self-care (01) ==
LOC: HODSOBC 10:36
PROVIDERS: Supervising Provider Obstetrics & Gynecology; Visit Provider Obstetrics & Gynecology
DX: Z39.2 Encounter for routine postpartum follow-up (principal); O92.4 Hypogalactia; Z30.09 Encounter for other general counseling and advice on contraception
CPT/HCPCS: 99214; G0463